=== PATIENT | female | born 1970 | race Caucasian/White ===

== ENCOUNTER 2017-01-08 16:50 | Emergency (ER) | payer OTHER, MEDICARE ==
[~2017-01-08] VITALS: Ht 157.5 cm; Wt 50.4 kg
[~2017-01-08 16:50] MED LIST: BUTA1CAP30 PO; CLON0.12 PO; COLE1TAB PO; COLITIS MEDICATION PO; DICY20TA29 PO; DIPH1TAB PO; DULO20CA45 PO; HYDR-882 PO; IBUP-1222 PO; METO5TAB57 PO; ONDA4TAB10 PO; PHEN16.298 PO; POTA10TA11 PO; SERT100T PO; VANC125C2 PO
[2017-01-08 18:02] LABS: HEMATOCRIT 39.4 % (34.6-47.8); HEMOGLOBIN 13.2 g/dL (11.7-16.4); WHITE BLOOD COUNT 4.9 x10^3/uL (3.4-10)
[2017-01-08 18:16] LABS: BLOOD UREA NITROGEN 11 mg/dL (7-18)
[2017-01-08] MEDS ORDERED: METOCLOPRAMIDE 5 MG/ML, 2ML IVPush ONE (20:00)
[2017-01-08] MEDS ORDERED: OMNIPAQUE 350 MG/ML, 100ML BOTTLE ONE (20:00)
[2017-01-08] MEDS ORDERED: SODIUM CHLORIDE 0.9% 1,000ML IVBOLUS ONE (20:00)
[2017-01-08] MEDS ORDERED: MORPHINE SULFATE 4 MG/ML, 1ML IVPush PRN ×2 (20:00→22:00)
[2017-01-08] MEDS ORDERED: SODIUM CHLORIDE FLUSH 10ML SYR IVF ONE (20:00)
[2017-01-08 20:22] LABS: PATH.CAST-FLAG NOT PRESENT; SPERM-FLAG NOT PRESENT; SRC-FLAG NOT PRESENT; XTAL-FLAG NOT PRESENT; YLC-FLAG NOT PRESENT
[2017-01-08] MEDS ORDERED: METOCLOPRAMIDE 5 MG/ML, 2ML ONE (20:29)
[2017-01-08] MEDS ORDERED: MORPHINE SULFATE 4 MG/ML, 1ML ONE ×2 (20:29→22:08)
[2017-01-08 22:36] VITALS: BP 119/68
== END 2017-01-08 22:50 | disposition home or self-care (01) ==
LOC: ED 21:55
DX: K52.9 Noninfective gastroenteritis and colitis, unspecified (principal); Z90.49 Acquired absence of other specified parts of digestive tract
CPT/HCPCS: 36415; 74020; 74177; 80048; 81001; 82040; 84703; 85025; 96361; 96374; 96375; 96376; 99285; J2765; J7030; Q9967

== ENCOUNTER 2017-01-12 15:36 | Emergency (ER) | payer OTHER, MEDICARE ==
[~2017-01-12] VITALS: Ht 157.5 cm; Wt 48.0 kg
[~2017-01-12 15:36] MED LIST changes: +PHEN-484 PO; -PHEN16.298 PO
[2017-01-12] MEDS ORDERED: MORPHINE SULFATE 4 MG/ML, 1ML ONE ×2 (15:52→17:56)
[2017-01-12] MEDS ORDERED: ONDANSETRON 2MG/ML, 2ML ONE (15:52)
[2017-01-12] MEDS ORDERED: ONDANSETRON 2MG/ML, 2ML IVPush ONE (16:00)
[2017-01-12] MEDS ORDERED: MORPHINE SULFATE 4 MG/ML, 1ML IVPush PRN (16:00)
[2017-01-12] MEDS ORDERED: PLEASE ENTER HEIGHT AND WEIGHT MC SCH (16:00)
[2017-01-12] MEDS ORDERED: SODIUM CHLORIDE FLUSH 10ML SYR IVF ONE (16:00)
[2017-01-12] MEDS ORDERED: SODIUM CHLORIDE 0.9% 1,000ML IVBOLUS ONE (16:00)
[2017-01-12 16:43] LABS: BLOOD UREA NITROGEN 5 mg/dL (7-18)
[2017-01-12 16:46] LABS: ASPARTATE AMINO TRANSFERASE 34 U/L (15-37)
[2017-01-12 17:28] LABS: HEMOGLOBIN 11.4 g/dL (11.7-16.4); WHITE BLOOD COUNT 4.8 x10^3/uL (3.4-10)
[2017-01-12] MEDS ORDERED: KETOROLAC 30 MG/1 ML IM ONE (19:00)
[2017-01-12] MEDS ORDERED: ONDANSETRON ODT 4 MG PO ONE (19:00)
[2017-01-12] MEDS ORDERED: ONDANSETRON ODT 4 MG ONE (19:40)
[2017-01-12 20:45] VITALS: BP 105/63
== END 2017-01-12 20:46 | disposition home or self-care (01) ==
LOC: ED 20:30
DX: K52.832 Lymphocytic colitis (principal); Z90.49 Acquired absence of other specified parts of digestive tract; Z90.710 Acquired absence of both cervix and uterus
CPT/HCPCS: 36415; 80053; 81001; 83605; 83690; 85025; 96361; 96374; 96375; 99284; J2405; J7030

== ENCOUNTER 2017-06-06 08:53 | Inpatient (IN) | payer OTHER, MEDICARE ==
[~2017-06-06] VITALS: Ht 157.5 cm; Wt 52.0 kg
[~2017-06-06 08:53] MED LIST changes: +BUDE3CAP2 PO
[2017-06-06] MEDS ORDERED: ONDANSETRON 2MG/ML, 2ML IVPush ONE ×2 (09:30→14:00)
[2017-06-06] MEDS ORDERED: SODIUM CHLORIDE 0.9% 1,000ML IVBOLUS ONE (09:30)
[2017-06-06 09:49] LABS: BASOPHILS # (AUTO) 0.07 x10^3/uL (0-0.1); BASOPHILS % (AUTO) 2 % (0-1); EOSINOPHILS # (AUTO) 0.16 x10^3/uL (0-0.4); EOSINOPHILS % (AUTO) 4 % (1-7); LYMPHOCYTES # (AUTO) 1.37 x10^3/uL (1-3.4); LYMPHOCYTES % (AUTO) 30 % (22-44); MD NO; MEAN CORPUSCULAR HGB CONC 33.9 g/dL (32.4-35.8); MEAN CORPUSCULAR VOLUME 97.3 fL (80-100); MEAN PLATELET VOLUME 8.5 fL (7.4-10.4); MONOCYTES % (AUTO) 7 % (2-9); NEUTROPHILS # (AUTO) 2.74 x10^3/uL (1.8-6.8); NEUTROPHILS % (AUTO) 59 % (42-75); PLATELET COUNT 252 x10^3/uL (130-400); RED BLOOD COUNT 3.97 x10^6/uL (3.82-5.3); RED CELL DISTRIBUTION WIDTH 13.5 % (9.6-15.2)
[2017-06-06 09:59] LABS: ALANINE AMINOTRANSFERASE 16 U/L (12-78); ALBUMIN 3.7 g/dL (3.4-5.0); ANION GAP 7 mmol/L (5-15); CALCIUM 8.1 mg/dL (8.5-10.1); CHLORIDE 110 mmol/L (98-107); CREATININE 0.78 mg/dL (0.55-1.02)
[2017-06-06 10:02] LABS: ALKALINE PHOSPHATASE 67 U/L (45-117); BILIRUBIN,TOTAL 0.5 mg/dL (0.2-1.0); TOTAL PROTEIN 7.2 g/dL (6.4-8.2)
[2017-06-06] MEDS ORDERED: ONDANSETRON 2MG/ML, 2ML ONE ×2 (10:04→13:36)
[2017-06-06] MEDS ORDERED: HYDROmorphone 2 MG/ML, 1ML ONE ×3 (10:05→13:37)
[2017-06-06] MEDS: HYDROmorphone 1 MG/ML, 1ML IVPush PRN ×2 (10:28→11:58)
[2017-06-06 11:33] LABS: MICROSCOPIC INDICATED
[2017-06-06 11:50] LABS: CULTURE INDICATED? YES; HCG UR SG 1.016 (1.003-1.030)
[2017-06-06] MEDS ORDERED: HYDROmorphone 1 MG/ML, 1ML IV ONE (13:00)
[2017-06-06] MEDS ORDERED: OMNIPAQUE 350 MG/ML, 100ML BOTTLE ONE (13:53)
[2017-06-06] MEDS ORDERED: SUCR1ORA5 PO (14:11)
[2017-06-06] MEDS ORDERED: CHOL100011 PO (14:12)
[2017-06-06 14:48] VITALS: BP 99/66
[2017-06-06] MEDS ORDERED: ONDANSETRON 2MG/ML, 2ML IVPush PRN (15:00)
[2017-06-06] MEDS ORDERED: LORazepam 2 MG/ML, 1ML IVPush PRN (15:00)
[2017-06-06] MEDS ORDERED: ONDANSETRON ODT 4 MG PO PRN (15:00)
[2017-06-06] MEDS ORDERED: SODIUM CHLORIDE 0.9% 1,000 ML IV ONE (15:00)
[2017-06-06] MEDS: ACETAMINOPHEN 325 MG TABLET PO PRN (15:30)
[2017-06-06] MEDS: HYDROmorphone 2 MG/ML, 1ML IVPush PRN ×2 (16:30→20:12)
[2017-06-06] MEDS: DIPHENOXYLATE/ATROPINE TABLET PO SCH ×2 (16:32→20:12)
[2017-06-06 20:01] VITALS: BP 102/65
[2017-06-06] MEDS: ONDANSETRON ODT 4 MG PO SCH (20:11)
[2017-06-06] MEDS: SUCRALFATE 1 GM/10 ML UDC PO SCH (20:12)
[2017-06-06] MEDS: DICYCLOMINE 20 MG TABLET PO SCH (20:12)
[2017-06-07 00:40] VITALS: BP 110/64
[2017-06-07] MEDS: HYDROmorphone 2 MG/ML, 1ML IVPush PRN ×6 (01:00→21:30)
[2017-06-07 05:01] LABS: CHLORIDE 107 mmol/L (98-107)
[2017-06-07 05:02] LABS: BASOPHILS # (AUTO) 0.06 x10^3/uL (0-0.1); BASOPHILS % (AUTO) 1 % (0-1); EOSINOPHILS # (AUTO) 0.21 x10^3/uL (0-0.4); EOSINOPHILS % (AUTO) 4 % (1-7); LYMPHOCYTES # (AUTO) 1.53 x10^3/uL (1-3.4); LYMPHOCYTES % (AUTO) 27 % (22-44); MD NO; MEAN CORPUSCULAR HEMOGLOBIN 33.7 pg (27.0-34.8); MEAN CORPUSCULAR HGB CONC 34.8 g/dL (32.4-35.8); MEAN CORPUSCULAR VOLUME 96.9 fL (80-100); MEAN PLATELET VOLUME 8.5 fL (7.4-10.4); MONOCYTES # (AUTO) 0.47 x10^3/uL (0.2-0.8); MONOCYTES % (AUTO) 8 % (2-9); NEUTROPHILS # (AUTO) 3.47 x10^3/uL (1.8-6.8); NEUTROPHILS % (AUTO) 61 % (42-75); PLATELET COUNT 222 x10^3/uL (130-400); RED BLOOD COUNT 3.38 x10^6/uL (3.82-5.3); RED CELL DISTRIBUTION WIDTH 13.4 % (9.6-15.2)
[2017-06-07 05:07] LABS: ALANINE AMINOTRANSFERASE 16 U/L (12-78); ALBUMIN 3.1 g/dL (3.4-5.0); ALKALINE PHOSPHATASE 61 U/L (45-117); ANION GAP 8 mmol/L (5-15); BILIRUBIN,TOTAL 0.5 mg/dL (0.2-1.0); CALCIUM 7.2 mg/dL (8.5-10.1); CREATININE 0.53 mg/dL (0.55-1.02)
[2017-06-07 08:06] VITALS: BP 106/51
[2017-06-07] MEDS: ONDANSETRON ODT 4 MG PO SCH ×2 (08:39→20:53)
[2017-06-07] MEDS: BUDESONIDE 3 MG CAP DR.ER PO SCH (08:40)
[2017-06-07] MEDS: DICYCLOMINE 20 MG TABLET PO SCH ×2 (08:41→20:53)
[2017-06-07] MEDS: DIPHENOXYLATE/ATROPINE TABLET PO SCH ×3 (08:43→20:53)
[2017-06-07] MEDS: CHOLECALCIFEROL 1,000 UNIT TABLET PO SCH (08:43)
[2017-06-07] MEDS: DULOXETINE 30 MG CAPSULE.DR PO SCH (08:43)
[2017-06-07] MEDS: POTASSIUM CHLORIDE 20 MEQ TAB.ER.PRT PO SCH (12:09)
[2017-06-07] MEDS ORDERED: SODIUM CHLORIDE 0.9% 1,000 ML IV ONE (14:00)
[2017-06-07 14:20] VITALS: BP 107/72
[2017-06-07] MEDS: ACETAMINOPHEN 325 MG TABLET PO PRN (15:36)
[2017-06-07 19:18] VITALS: BP 112/76
[2017-06-07] MEDS: SUCRALFATE 1 GM/10 ML UDC PO SCH (20:53)
[2017-06-07] MEDS: VALACYCLOVIR 500MG TABLET PO SCH (20:54)
[2017-06-08] MEDS: HYDROmorphone 2 MG/ML, 1ML IVPush PRN ×6 (01:07→19:56)
[2017-06-08 01:30] VITALS: BP 98/52
[2017-06-08 06:48] LABS: BASOPHILS # (AUTO) 0.05 x10^3/uL (0-0.1); BASOPHILS % (AUTO) 1 % (0-1); EOSINOPHILS % (AUTO) 5 % (1-7); LYMPHOCYTES % (AUTO) 39 % (22-44); MD NO; MEAN CORPUSCULAR HGB CONC 34.3 g/dL (32.4-35.8); MEAN CORPUSCULAR VOLUME 98.9 fL (80-100); MEAN PLATELET VOLUME 8.7 fL (7.4-10.4); MONOCYTES # (AUTO) 0.34 x10^3/uL (0.2-0.8); MONOCYTES % (AUTO) 9 % (2-9); NEUTROPHILS # (AUTO) 1.78 x10^3/uL (1.8-6.8); NEUTROPHILS % (AUTO) 46 % (42-75); PLATELET COUNT 234 x10^3/uL (130-400); RED BLOOD COUNT 3.41 x10^6/uL (3.82-5.3); RED CELL DISTRIBUTION WIDTH 12.9 % (9.6-15.2)
[2017-06-08 07:01] LABS: ANION GAP 5 mmol/L (5-15); CALCIUM 8.1 mg/dL (8.5-10.1); CHLORIDE 108 mmol/L (98-107)
[2017-06-08 07:02] LABS: CREATININE 0.54 mg/dL (0.55-1.02)
[2017-06-08 07:09] VITALS: BP 103/67
[2017-06-08] MEDS: DICYCLOMINE 20 MG TABLET PO SCH ×2 (08:19→19:56)
[2017-06-08] MEDS: POTASSIUM CHLORIDE 20 MEQ TAB.ER.PRT PO SCH (08:19)
[2017-06-08] MEDS: DULOXETINE 30 MG CAPSULE.DR PO SCH (08:19)
[2017-06-08] MEDS: BUDESONIDE 3 MG CAP DR.ER PO SCH (08:20)
[2017-06-08] MEDS: CHOLECALCIFEROL 1,000 UNIT TABLET PO SCH (08:20)
[2017-06-08] MEDS: VALACYCLOVIR 500MG TABLET PO SCH ×2 (08:20→19:56)
[2017-06-08] MEDS: ONDANSETRON ODT 4 MG PO SCH ×2 (08:20→19:56)
[2017-06-08] MEDS: DIPHENOXYLATE/ATROPINE TABLET PO SCH ×3 (08:20→19:56)
[2017-06-08 14:36] VITALS: BP 114/54
[2017-06-08 19:35] VITALS: BP 99/52
[2017-06-08] MEDS: SUCRALFATE 1 GM/10 ML UDC PO SCH (19:56)
[2017-06-09] MEDS: HYDROmorphone 2 MG/ML, 1ML IVPush PRN ×3 (00:24→13:18)
[2017-06-09 01:48] VITALS: BP 108/69
[2017-06-09 06:59] VITALS: BP 94/57
[2017-06-09 07:31] LABS: BASOPHILS # (AUTO) 0.05 x10^3/uL (0-0.1); BASOPHILS % (AUTO) 1 % (0-1); EOSINOPHILS # (AUTO) 0.24 x10^3/uL (0-0.4); EOSINOPHILS % (AUTO) 4 % (1-7); LYMPHOCYTES # (AUTO) 2.29 x10^3/uL (1-3.4); LYMPHOCYTES % (AUTO) 36 % (22-44); MD NO; MEAN CORPUSCULAR HEMOGLOBIN 33.5 pg (27.0-34.8); MEAN CORPUSCULAR HGB CONC 34.2 g/dL (32.4-35.8); MEAN CORPUSCULAR VOLUME 98.1 fL (80-100); MEAN PLATELET VOLUME 8.3 fL (7.4-10.4); MONOCYTES % (AUTO) 6 % (2-9); NEUTROPHILS # (AUTO) 3.39 x10^3/uL (1.8-6.8); NEUTROPHILS % (AUTO) 53 % (42-75); PLATELET COUNT 252 x10^3/uL (130-400); RED BLOOD COUNT 3.83 x10^6/uL (3.82-5.3); RED CELL DISTRIBUTION WIDTH 12.9 % (9.6-15.2)
[2017-06-09 07:40] LABS: ANION GAP 6 mmol/L (5-15); CALCIUM 8.5 mg/dL (8.5-10.1); CHLORIDE 103 mmol/L (98-107); CREATININE 0.71 mg/dL (0.55-1.02)
[2017-06-09] MEDS: ONDANSETRON ODT 4 MG PO SCH (09:00)
[2017-06-09] MEDS: BUDESONIDE 3 MG CAP DR.ER PO SCH (09:00)
[2017-06-09] MEDS: CHOLECALCIFEROL 1,000 UNIT TABLET PO SCH (09:02)
[2017-06-09] MEDS: VALACYCLOVIR 500MG TABLET PO SCH (09:02)
[2017-06-09] MEDS: DICYCLOMINE 20 MG TABLET PO SCH (09:02)
[2017-06-09] MEDS: DIPHENOXYLATE/ATROPINE TABLET PO SCH (09:02)
[2017-06-09] MEDS: POTASSIUM CHLORIDE 20 MEQ TAB.ER.PRT PO SCH (09:03)
[2017-06-09] MEDS: DULOXETINE 30 MG CAPSULE.DR PO SCH (09:03)
[2017-06-09 13:05] VITALS: BP 106/74
== END 2017-06-09 14:08 | disposition home or self-care (01) | DRG 392 ==
LOC: ED 09:52 → INTOOBSV 13:57 → EDIP 13:57 → 3NE 14:43 → OBSVTOIN 06-08 08:38 → DCLOUNGE 06-09 14:05
PROVIDERS: ADMIT Internal Medicine; ATTEND Internal Medicine
DX: K52.89 Other specified noninfective gastroenteritis and colitis (principal); E87.6 Hypokalemia; F41.1 Generalized anxiety disorder; J45.909 Unspecified asthma, uncomplicated; Z80.0 Family history of malignant neoplasm of digestive organs; Z80.7 Family history of other malignant neoplasms of lymphoid, hematopoietic and related tissues; Z82.49 Family history of ischemic heart disease and other diseases of the circulatory system; Z81.8 Family history of other mental and behavioral disorders; Z83.3 Family history of diabetes mellitus; Z90.49 Acquired absence of other specified parts of digestive tract; Z90.710 Acquired absence of both cervix and uterus; Z88.8 Allergy status to other drugs, medicaments and biological substances
CPT/HCPCS: 36415; 74177; 80048; 80053; 81001; 81025; 83690; 83735; 84100; 85025; 87086; 93005; 96361; 96374; 96375; 96376; G0378; J1170; J2405; Q0162; Q9967; J2060; J7030

== ENCOUNTER 2017-07-02 22:31 | Emergency (ER) | payer OTHER, MEDICARE ==
[~2017-07-02] VITALS: Ht 157.5 cm; Wt 53.1 kg
[~2017-07-02 22:31] MED LIST changes: +CHOL100011 PO; -SERT100T PO; +SERT20OR PO; +SUCR1ORA5 PO
[2017-07-02] MEDS ORDERED: SODIUM CHLORIDE 0.9% 1,000ML IVBOLUS ONE (23:30)
[2017-07-02] MEDS ORDERED: FAMOTIDINE 20 MG/2 ML IVP ONE (23:30)
[2017-07-02] MEDS ORDERED: SODIUM CHLORIDE FLUSH 10ML SYR IVF ONE (23:30)
[2017-07-02] MEDS ORDERED: ONDANSETRON 2MG/ML, 2ML IVPush ONE (23:30)
[2017-07-02] MEDS ORDERED: ONDANSETRON 2MG/ML, 2ML ONE (23:48)
[2017-07-02] MEDS ORDERED: HYDROmorphone 2 MG/ML, 1ML ONE (23:48)
[2017-07-02] MEDS ORDERED: FAMOTIDINE 20 MG/2 ML ONE (23:49)
[2017-07-02 23:55] LABS: BASOPHILS # (AUTO) 0.06 x10^3/uL (0-0.1); BASOPHILS % (AUTO) 1 % (0-1); EOSINOPHILS # (AUTO) 0.21 x10^3/uL (0-0.4); EOSINOPHILS % (AUTO) 4 % (1-7); LYMPHOCYTES % (AUTO) 38 % (22-44); MD NO; MEAN CORPUSCULAR HEMOGLOBIN 33.6 pg (27.0-34.8); MEAN CORPUSCULAR VOLUME 98.7 fL (80-100); MEAN PLATELET VOLUME 8.8 fL (7.4-10.4); MONOCYTES # (AUTO) 0.49 x10^3/uL (0.2-0.8); MONOCYTES % (AUTO) 8 % (2-9); NEUTROPHILS # (AUTO) 2.92 x10^3/uL (1.8-6.8); NEUTROPHILS % (AUTO) 49 % (42-75); PLATELET COUNT 198 x10^3/uL (130-400); RED BLOOD COUNT 3.65 x10^6/uL (3.82-5.3); RED CELL DISTRIBUTION WIDTH 12.9 % (9.6-15.2)
[2017-07-02] MEDS: HYDROmorphone 2 MG/ML, 1ML IVPush PRN (23:55)
[2017-07-03 00:03] LABS: ALANINE AMINOTRANSFERASE 18 U/L (12-78); ALBUMIN 3.6 g/dL (3.4-5.0); ANION GAP 9 mmol/L (5-15); CALCIUM 7.8 mg/dL (8.5-10.1); CHLORIDE 110 mmol/L (98-107); CREATININE 0.66 mg/dL (0.55-1.02)
[2017-07-03 00:05] LABS: ALKALINE PHOSPHATASE 77 U/L (45-117); BILIRUBIN,TOTAL 0.2 mg/dL (0.2-1.0); TOTAL PROTEIN 6.9 g/dL (6.4-8.2)
[2017-07-03 00:07] LABS: MICROSCOPIC AUTO
[2017-07-03] MEDS: HYDROmorphone 2 MG/ML, 1ML IVPush PRN (00:10)
[2017-07-03 01:03] LABS: CULTURE INDICATED? NO
[2017-07-03] MEDS ORDERED: HYDROmorphone 2 MG/ML, 1ML ONE (02:00)
[2017-07-03] MEDS ORDERED: HYDROmorphone 2 MG/ML, 1ML IVPush PRN (02:00)
[2017-07-03 03:28] VITALS: BP 92/50
[2017-07-03] MEDS ORDERED: OXYcodone/APAP 5/325MG TABLET PO ONE (04:00)
[2017-07-03] MEDS ORDERED: PROMETHAZINE 25MG TABLET PO PRN (04:00)
[2017-07-03] MEDS ORDERED: OXYcodone/APAP 5/325MG TABLET ONE (04:04)
== END 2017-07-03 04:57 | disposition home or self-care (01) ==
LOC: ED 23:48
DX: G89.29 Other chronic pain (principal); R10.32 Left lower quadrant pain; Z90.49 Acquired absence of other specified parts of digestive tract; Z87.891 Personal history of nicotine dependence
CPT/HCPCS: 36415; 74021; 80053; 81001; 83690; 85025; 96361; 96374; 96375; 96376; 99285; J1170; J2405; J7030; Q0169; S0028

== ENCOUNTER 2017-07-05 13:52 | Emergency (ER) | payer OTHER, MEDICARE ==
[~2017-07-05] VITALS: Ht 157.5 cm; Wt 51.0 kg
[2017-07-05] MEDS ORDERED: SUCR1TAB33 PO (14:27)
[2017-07-05] MEDS ORDERED: MORPHINE SULFATE 4 MG/ML, 1ML ONE ×2 (14:35→15:41)
[2017-07-05] MEDS ORDERED: ONDANSETRON 2MG/ML, 2ML ONE (14:36)
[2017-07-05] MEDS: MORPHINE SULFATE 4 MG/ML, 1ML IVPush PRN ×2 (14:40→15:43)
[2017-07-05 14:44] VITALS: BP 105/57
[2017-07-05] MEDS ORDERED: ONDANSETRON 2MG/ML, 2ML IVPush ONE (15:00)
[2017-07-05] MEDS ORDERED: SODIUM CHLORIDE 0.9% 1,000ML IVBOLUS ONE (15:00)
[2017-07-05] MEDS ORDERED: SODIUM CHLORIDE FLUSH 10ML SYR IVF ONE (15:00)
[2017-07-05 15:09] LABS: BASOPHILS # (AUTO) 0.07 x10^3/uL (0-0.1); BASOPHILS % (AUTO) 1 % (0-1); EOSINOPHILS % (AUTO) 1 % (1-7); LYMPHOCYTES # (AUTO) 1.94 x10^3/uL (1-3.4); LYMPHOCYTES % (AUTO) 29 % (22-44); MD NO; MEAN CORPUSCULAR HEMOGLOBIN 33.3 pg (27.0-34.8); MEAN CORPUSCULAR HGB CONC 33.6 g/dL (32.4-35.8); MEAN PLATELET VOLUME 9.2 fL (7.4-10.4); MONOCYTES # (AUTO) 0.43 x10^3/uL (0.2-0.8); MONOCYTES % (AUTO) 6 % (2-9); NEUTROPHILS # (AUTO) 4.25 x10^3/uL (1.8-6.8); NEUTROPHILS % (AUTO) 63 % (42-75); PLATELET COUNT 217 x10^3/uL (130-400); RED BLOOD COUNT 3.69 x10^6/uL (3.82-5.3)
[2017-07-05 15:16] LABS: MICROSCOPIC AUTO
[2017-07-05 15:17] LABS: CULTURE INDICATED? NO
[2017-07-05 15:20] LABS: ALBUMIN 3.7 g/dL (3.4-5.0); ANION GAP 7 mmol/L (5-15); CALCIUM 7.7 mg/dL (8.5-10.1); CHLORIDE 112 mmol/L (98-107)
[2017-07-05 15:29] LABS: ALANINE AMINOTRANSFERASE 17 U/L (12-78); ALKALINE PHOSPHATASE 68 U/L (45-117); BILIRUBIN,TOTAL 0.3 mg/dL (0.2-1.0); CREATININE 0.72 mg/dL (0.55-1.02); TOTAL PROTEIN 6.9 g/dL (6.4-8.2)
== END 2017-07-05 18:25 | disposition home or self-care (01) ==
LOC: ED 16:57
DX: K52.9 Noninfective gastroenteritis and colitis, unspecified (principal); Z90.49 Acquired absence of other specified parts of digestive tract
CPT/HCPCS: 36415; 74177; 80053; 81001; 83690; 84703; 85025; 96374; 96375; 96376; 99285; J2405; J7030; J7512

== ENCOUNTER 2017-08-03 12:10 | Inpatient (IN) | payer OTHER, MEDICARE ==
[~2017-08-03] VITALS: Ht 157.5 cm; Wt 52.9 kg
[~2017-08-03 12:10] MED LIST changes: +SERT100T PO; -SERT20OR PO; +SUCR1TAB33 PO
[2017-08-03] MEDS ORDERED: SODIUM CHLORIDE 0.9% 1,000 ML IV ONE (12:36)
[2017-08-03] MEDS ORDERED: FAMOTIDINE 20 MG/2 ML IVP ONE (13:00)
[2017-08-03] MEDS ORDERED: ONDANSETRON 2MG/ML, 2ML IVPush ONE (13:00)
[2017-08-03] MEDS ORDERED: SODIUM CHLORIDE 0.9% 1,000ML IVBOLUS ONE (13:00)
[2017-08-03 13:01] LABS: BASOPHILS # (AUTO) 0.06 x10^3/uL (0-0.1); BASOPHILS % (AUTO) 1 % (0-1); EOSINOPHILS # (AUTO) 0.07 x10^3/uL (0-0.4); EOSINOPHILS % (AUTO) 1 % (1-7); LYMPHOCYTES # (AUTO) 1.42 x10^3/uL (1-3.4); LYMPHOCYTES % (AUTO) 22 % (22-44); MD NO; MEAN CORPUSCULAR HEMOGLOBIN 33.6 pg (27.0-34.8); MEAN CORPUSCULAR HGB CONC 34.6 g/dL (32.4-35.8); MEAN CORPUSCULAR VOLUME 96.9 fL (80-100); MEAN PLATELET VOLUME 8.8 fL (7.4-10.4); MONOCYTES # (AUTO) 0.44 x10^3/uL (0.2-0.8); MONOCYTES % (AUTO) 7 % (2-9); NEUTROPHILS # (AUTO) 4.38 x10^3/uL (1.8-6.8); NEUTROPHILS % (AUTO) 69 % (42-75); PLATELET COUNT 254 x10^3/uL (130-400); RED BLOOD COUNT 3.98 x10^6/uL (3.82-5.3)
[2017-08-03] MEDS ORDERED: ONDANSETRON 2MG/ML, 2ML ONE (13:06)
[2017-08-03] MEDS ORDERED: FAMOTIDINE 20 MG/2 ML ONE (13:07)
[2017-08-03] MEDS ORDERED: MORPHINE SULFATE 4 MG/ML, 1ML ONE ×2 (13:07→13:58)
[2017-08-03 13:12] LABS: ALANINE AMINOTRANSFERASE 17 U/L (12-78); ALBUMIN 3.8 g/dL (3.4-5.0); ANION GAP 9 mmol/L (5-15); CALCIUM 8.7 mg/dL (8.5-10.1); CHLORIDE 109 mmol/L (98-107); CREATININE 0.75 mg/dL (0.55-1.02)
[2017-08-03 13:17] LABS: ALKALINE PHOSPHATASE 70 U/L (45-117); BILIRUBIN,TOTAL 0.3 mg/dL (0.2-1.0); TOTAL PROTEIN 7.4 g/dL (6.4-8.2)
[2017-08-03] MEDS: MORPHINE SULFATE 4 MG/ML, 1ML IVPush PRN ×4 (13:27→21:49)
[2017-08-03] MEDS ORDERED: methylPREDNISolone SOD SUCC 125 MG/2 ML IVPush ONE (13:30)
[2017-08-03] MEDS ORDERED: methylPREDNISolone SOD SUCC 125 MG/2 ML ONE (13:48)
[2017-08-03] MEDS ORDERED: FENTANYL PF 100 MCG/2ML ONE (14:15)
[2017-08-03] MEDS ORDERED: FENTANYL PF 100 MCG/2ML IVPush PRN (14:30)
[2017-08-03 14:34] LABS: MICROSCOPIC NOT IND
[2017-08-03 14:46] LABS: CULTURE INDICATED? NO
[2017-08-03] MEDS ORDERED: ONDANSETRON ODT 4 MG PO PRN (15:30)
[2017-08-03] MEDS ORDERED: LORazepam 1MG TABLET PO PRN (15:30)
[2017-08-03 16:06] VITALS: BP 97/57
[2017-08-03] MEDS: ONDANSETRON 2MG/ML, 2ML IVPush PRN (17:52)
[2017-08-03] MEDS: DIPHENOXYLATE/ATROPINE TABLET PO SCH ×2 (17:52→20:09)
[2017-08-03] MEDS: NS + 20MEQ KCL 1,000 ML IV SCH (18:10)
[2017-08-03 19:51] VITALS: BP 99/65
[2017-08-03] MEDS: SUCRALFATE 1 GM TABLET PO SCH (20:09)
[2017-08-03] MEDS: DICYCLOMINE 20 MG TABLET PO SCH (20:10)
[2017-08-03] MEDS: DULOXETINE 30 MG CAPSULE.DR PO SCH (20:10)
[2017-08-03] MEDS: methylPREDNISolone SOD SUCC 125 MG/2 ML IVPush SCH (21:48)
[2017-08-04 01:38] VITALS: BP 95/59
[2017-08-04] MEDS: MORPHINE SULFATE 4 MG/ML, 1ML IVPush PRN ×5 (02:17→20:17)
[2017-08-04] MEDS: NS + 20MEQ KCL 1,000 ML IV SCH (02:17)
[2017-08-04 06:24] LABS: ANION GAP 6 mmol/L (5-15); CALCIUM 7.3 mg/dL (8.5-10.1); CHLORIDE 114 mmol/L (98-107)
[2017-08-04 06:27] LABS: ALANINE AMINOTRANSFERASE 16 U/L (12-78); ALKALINE PHOSPHATASE 57 U/L (45-117); BILIRUBIN,TOTAL 0.4 mg/dL (0.2-1.0); CREATININE 0.53 mg/dL (0.55-1.02); TOTAL PROTEIN 5.9 g/dL (6.4-8.2)
[2017-08-04 07:15] VITALS: BP 100/63
[2017-08-04] MEDS: CHOLECALCIFEROL 1,000 UNIT TABLET PO SCH (08:24)
[2017-08-04] MEDS: DIPHENOXYLATE/ATROPINE TABLET PO SCH ×3 (08:24→20:18)
[2017-08-04] MEDS: POTASSIUM CHLORIDE 10 MEQ TABLET.ER PO SCH (08:24)
[2017-08-04] MEDS: DICYCLOMINE 20 MG TABLET PO SCH ×2 (08:24→20:18)
[2017-08-04] MEDS: POTASSIUM CHLORIDE 10 MEQ in D5%-0.45% NACL 1,000 ML IV SCH ×2 (09:50→22:06)
[2017-08-04] MEDS: methylPREDNISolone SOD SUCC 125 MG/2 ML IVPush SCH ×2 (11:19→22:06)
[2017-08-04 12:48] VITALS: BP 104/59
[2017-08-04 19:45] VITALS: BP 97/53
[2017-08-04] MEDS: SUCRALFATE 1 GM TABLET PO SCH (20:18)
[2017-08-04] MEDS: DULOXETINE 30 MG CAPSULE.DR PO SCH (20:18)
[2017-08-04 21:16] LABS: CLOSTRIDIUM DIFFICILE ANTIGEN NEGATIVE; CLOSTRIDIUM DIFFICILE TOXIN NEGATIVE (Negative)
[2017-08-05 01:12] VITALS: BP 102/58
[2017-08-05 05:38] LABS: ANION GAP 7 mmol/L (5-15); CALCIUM 7.7 mg/dL (8.5-10.1); CHLORIDE 112 mmol/L (98-107); CREATININE 0.62 mg/dL (0.55-1.02)
[2017-08-05] MEDS: POTASSIUM CHLORIDE 10 MEQ in D5%-0.45% NACL 1,000 ML IV SCH (06:18)
[2017-08-05 07:32] VITALS: BP 96/62
[2017-08-05] MEDS: MORPHINE SULFATE 4 MG/ML, 1ML IVPush PRN ×4 (08:24→22:35)
[2017-08-05] MEDS: POTASSIUM CHLORIDE 10 MEQ TABLET.ER PO SCH (08:25)
[2017-08-05] MEDS: DICYCLOMINE 20 MG TABLET PO SCH ×2 (08:25→20:32)
[2017-08-05] MEDS: DIPHENOXYLATE/ATROPINE TABLET PO SCH ×3 (08:25→20:32)
[2017-08-05] MEDS: CHOLECALCIFEROL 1,000 UNIT TABLET PO SCH (08:25)
[2017-08-05] MEDS: ONDANSETRON 2MG/ML, 2ML IVPush PRN ×2 (12:58→22:34)
[2017-08-05] MEDS: methylPREDNISolone SOD SUCC 125 MG/2 ML IVPush SCH ×2 (13:01→23:51)
[2017-08-05 14:05] VITALS: BP 106/68
[2017-08-05 19:13] VITALS: BP 106/72
[2017-08-05] MEDS: DULOXETINE 30 MG CAPSULE.DR PO SCH (20:32)
[2017-08-05] MEDS: SUCRALFATE 1 GM TABLET PO SCH (20:32)
[2017-08-06 02:50] VITALS: BP 105/54
[2017-08-06 05:44] LABS: ANION GAP 4 mmol/L (5-15); CALCIUM 8.1 mg/dL (8.5-10.1); CHLORIDE 108 mmol/L (98-107); CREATININE 0.64 mg/dL (0.55-1.02)
[2017-08-06 06:40] VITALS: BP 98/63
[2017-08-06] MEDS ORDERED: POTASSIUM CHLORIDE 10 MEQ in D5%-0.45% NACL 1,000 ML IV SCH (09:00)
[2017-08-06] MEDS: DIPHENOXYLATE/ATROPINE TABLET PO SCH (10:11)
[2017-08-06] MEDS: POTASSIUM CHLORIDE 10 MEQ TABLET.ER PO SCH (10:11)
[2017-08-06] MEDS: CHOLECALCIFEROL 1,000 UNIT TABLET PO SCH (10:11)
[2017-08-06] MEDS: DICYCLOMINE 20 MG TABLET PO SCH (10:11)
[2017-08-06] MEDS: methylPREDNISolone SOD SUCC 125 MG/2 ML IVPush SCH (10:16)
[2017-08-06] MEDS ORDERED: PRED20TA PO (10:31)
== END 2017-08-06 15:50 | disposition home or self-care (01) | DRG 392 ==
LOC: ED 13:44 → EDIP 14:33 → 3NE 15:49
PROVIDERS: ADMIT Hospitalist; ATTEND Hospitalist
DX: K52.832 Lymphocytic colitis (principal); E44.1 Mild protein-calorie malnutrition; K52.9 Noninfective gastroenteritis and colitis, unspecified; Z91.14 Patient's other noncompliance with medication regimen; Z68.21 Body mass index [BMI] 21.0-21.9, adult; E86.0 Dehydration; F32.9 Major depressive disorder, single episode, unspecified; F41.1 Generalized anxiety disorder; G43.909 Migraine, unspecified, not intractable, without status migrainosus; G89.29 Other chronic pain; Z80.0 Family history of malignant neoplasm of digestive organs; Z81.8 Family history of other mental and behavioral disorders; Z80.7 Family history of other malignant neoplasms of lymphoid, hematopoietic and related tissues; Z90.710 Acquired absence of both cervix and uterus; Z82.49 Family history of ischemic heart disease and other diseases of the circulatory system; Z91.19 Patient's noncompliance with other medical treatment and regimen; Z90.49 Acquired absence of other specified parts of digestive tract; Z88.8 Allergy status to other drugs, medicaments and biological substances
CPT/HCPCS: 36415; 74021; 80048; 80053; 81003; 83690; 84703; 85025; 87324; 96361; 96374; 96375; 96376; J2405; J3010; J3480; J2930; J7030; S0028

== ENCOUNTER 2017-09-19 17:44 | Inpatient (IN) | payer OTHER, MEDICARE ==
[~2017-09-19] VITALS: Ht 157.5 cm; Wt 56.7 kg
[~2017-09-19 17:44] MED LIST changes: +PRED20TA PO
[2017-09-19] MEDS ORDERED: VALA10004 PO (18:20)
[2017-09-19] MEDS ORDERED: SODIUM CHLORIDE 0.9% 1,000ML IVBOLUS ONE (18:30)
[2017-09-19] MEDS ORDERED: DIPHENHYDRAMINE 50 MG/ML, 1ML IVPush ONE (18:30)
[2017-09-19] MEDS ORDERED: SODIUM CHLORIDE FLUSH 10ML SYR IVF ONE (18:30)
[2017-09-19 18:42] LABS: BASOPHILS # (AUTO) 0.07 x10^3/uL (0-0.1); BASOPHILS % (AUTO) 2 % (0-1); EOSINOPHILS # (AUTO) 0.13 x10^3/uL (0-0.4); EOSINOPHILS % (AUTO) 3 % (1-7); LYMPHOCYTES # (AUTO) 1.98 x10^3/uL (1-3.4); LYMPHOCYTES % (AUTO) 41 % (22-44); MD NO; MEAN CORPUSCULAR HEMOGLOBIN 33.3 pg (27.0-34.8); MEAN CORPUSCULAR HGB CONC 34.3 g/dL (32.4-35.8); MEAN CORPUSCULAR VOLUME 97.1 fL (80-100); MEAN PLATELET VOLUME 8.7 fL (7.4-10.4); MONOCYTES # (AUTO) 0.36 x10^3/uL (0.2-0.8); MONOCYTES % (AUTO) 8 % (2-9); NEUTROPHILS # (AUTO) 2.32 x10^3/uL (1.8-6.8); NEUTROPHILS % (AUTO) 48 % (42-75); PLATELET COUNT 210 x10^3/uL (130-400); RED BLOOD COUNT 3.67 x10^6/uL (3.82-5.3); RED CELL DISTRIBUTION WIDTH 13.3 % (9.6-15.2)
[2017-09-19] MEDS ORDERED: DIPHENHYDRAMINE 50 MG/ML, 1ML ONE (18:42)
[2017-09-19] MEDS ORDERED: MORPHINE SULFATE 4 MG/ML, 1ML ONE ×2 (18:42→19:09)
[2017-09-19] MEDS: MORPHINE SULFATE 4 MG/ML, 1ML IVPush PRN ×2 (18:43→19:12)
[2017-09-19 18:54] LABS: ALBUMIN 3.8 g/dL (3.4-5.0); ANION GAP 9 mmol/L (5-15); CALCIUM 8.5 mg/dL (8.5-10.1); CHLORIDE 110 mmol/L (98-107)
[2017-09-19 19:00] LABS: ALANINE AMINOTRANSFERASE 27 U/L (12-78); ALKALINE PHOSPHATASE 67 U/L (45-117); BILIRUBIN,TOTAL 0.5 mg/dL (0.2-1.0); CREATININE 0.79 mg/dL (0.55-1.02)
[2017-09-19 19:22] LABS: MICROSCOPIC AUTO
[2017-09-19 19:24] LABS: CULTURE INDICATED? NO
[2017-09-19] MEDS ORDERED: METHYLNALTREXONE 12 MG/0.6 ML SQ ONE (19:34)
[2017-09-19] MEDS: METHYLNALTREXONE 12 MG/0.6 ML SQ ONE ×2 (19:36→20:04)
[2017-09-19] MEDS ORDERED: HYDROmorphone 2 MG/ML, 1ML ONE (19:55)
[2017-09-19] MEDS ORDERED: PROMETHAZINE 25 MG/ML, 1ML ONE (19:57)
[2017-09-19] MEDS ORDERED: HYDROmorphone 2 MG/ML, 1ML IVPush PRN (20:00)
[2017-09-19] MEDS ORDERED: PROMETHAZINE 25 MG/ML, 1ML IM ONE (20:00)
[2017-09-19] MEDS ORDERED: ACETAMINOPHEN 325 MG TABLET PO PRN (21:00)
[2017-09-19] MEDS ORDERED: VALACYCLOVIR 500MG TABLET PO PRN (21:00)
[2017-09-19] MEDS ORDERED: TEMPLATE NON-FORMULARY MED. (Butalbital/Aspirin/Caffeine** (Fiorinal 50-325-40 Mg Capsule HOMEMEDPO PRN (21:00)
[2017-09-19 21:30] VITALS: BP 102/65
[2017-09-19] MEDS: SODIUM CHLORIDE 0.9% 1,000 ML IV SCH (21:47)
[2017-09-19] MEDS: SUCRALFATE 1 GM TABLET PO SCH (21:47)
[2017-09-19] MEDS: DULOXETINE 20 MG CAPSULE.DR PO SCH (21:47)
[2017-09-19] MEDS: DICYCLOMINE 20 MG TABLET PO SCH (21:47)
[2017-09-19] MEDS: morphine SULFATE 10 MG/ML, 1ML IVPush PRN (22:44)
[2017-09-20 03:02] VITALS: BP 108/55
[2017-09-20] MEDS: morphine SULFATE 10 MG/ML, 1ML IVPush PRN ×3 (03:44→11:51)
[2017-09-20 05:08] LABS: BASOPHILS # (AUTO) 0.07 x10^3/uL (0-0.1); BASOPHILS % (AUTO) 2 % (0-1); EOSINOPHILS # (AUTO) 0.15 x10^3/uL (0-0.4); EOSINOPHILS % (AUTO) 3 % (1-7); LYMPHOCYTES # (AUTO) 2.01 x10^3/uL (1-3.4); LYMPHOCYTES % (AUTO) 44 % (22-44); MD NO; MEAN CORPUSCULAR HEMOGLOBIN 33.1 pg (27.0-34.8); MEAN CORPUSCULAR HGB CONC 34.3 g/dL (32.4-35.8); MEAN CORPUSCULAR VOLUME 96.7 fL (80-100); MEAN PLATELET VOLUME 8.7 fL (7.4-10.4); MONOCYTES # (AUTO) 0.39 x10^3/uL (0.2-0.8); MONOCYTES % (AUTO) 9 % (2-9); NEUTROPHILS # (AUTO) 1.94 x10^3/uL (1.8-6.8); NEUTROPHILS % (AUTO) 43 % (42-75); PLATELET COUNT 178 x10^3/uL (130-400); RED BLOOD COUNT 3.24 x10^6/uL (3.82-5.3)
[2017-09-20 05:16] LABS: ALBUMIN 3.1 g/dL (3.4-5.0); ANION GAP 7 mmol/L (5-15); CHLORIDE 113 mmol/L (98-107)
[2017-09-20 05:19] LABS: CREATININE 0.68 mg/dL (0.55-1.02)
[2017-09-20 05:20] LABS: ALANINE AMINOTRANSFERASE 25 U/L (12-78); ALKALINE PHOSPHATASE 56 U/L (45-117); BILIRUBIN,TOTAL 0.5 mg/dL (0.2-1.0); TOTAL PROTEIN 5.7 g/dL (6.4-8.2)
[2017-09-20 06:08] LABS: CLOSTRIDIUM DIFFICILE ANTIGEN NEGATIVE; CLOSTRIDIUM DIFFICILE TOXIN NEGATIVE (Negative)
[2017-09-20] MEDS: SODIUM CHLORIDE 0.9% 1,000 ML IV SCH ×2 (06:18→16:44)
[2017-09-20 07:14] VITALS: BP 97/57
[2017-09-20] MEDS: DICYCLOMINE 20 MG TABLET PO SCH ×2 (08:29→20:23)
[2017-09-20] MEDS: ONDANSETRON ODT 4 MG PO PRN ×2 (08:29→14:27)
[2017-09-20] MEDS: CHOLECALCIFEROL 1,000 UNIT TABLET PO SCH (08:36)
[2017-09-20] MEDS ORDERED: POTASSIUM CHLORIDE 20 MEQ TAB.ER.PRT PO SCH (09:00)
[2017-09-20] MEDS ORDERED: POTASSIUM CHLORIDE 20 MEQ TAB.ER.PRT PO ONE ×2 (11:30→14:30)
[2017-09-20 12:50] VITALS: BP 103/59
[2017-09-20] MEDS: MORPHINE SULFATE 4 MG/ML, 1ML IVPush PRN ×2 (16:57→22:26)
[2017-09-20 19:57] VITALS: BP 114/74
[2017-09-20] MEDS: DULOXETINE 20 MG CAPSULE.DR PO SCH (20:22)
[2017-09-20] MEDS: SUCRALFATE 1 GM TABLET PO SCH (20:23)
[2017-09-20] MEDS: DIPHENOXYLATE/ATROPINE TABLET PO PRN (22:27)
[2017-09-21] MEDS: SODIUM CHLORIDE 0.9% 1,000 ML IV SCH ×3 (02:25→20:57)
[2017-09-21 02:45] VITALS: BP 98/59
[2017-09-21] MEDS: ONDANSETRON ODT 4 MG PO PRN ×3 (03:04→22:13)
[2017-09-21] MEDS: MORPHINE SULFATE 4 MG/ML, 1ML IVPush PRN ×3 (03:08→15:16)
[2017-09-21 05:11] LABS: ALBUMIN 3.2 g/dL (3.4-5.0); ANION GAP 6 mmol/L (5-15); CALCIUM 7.9 mg/dL (8.5-10.1); CHLORIDE 111 mmol/L (98-107); CREATININE 0.61 mg/dL (0.55-1.02)
[2017-09-21 05:19] LABS: MEAN CORPUSCULAR HEMOGLOBIN 32.9 pg (27.0-34.8); MEAN CORPUSCULAR HGB CONC 33.9 g/dL (32.4-35.8); MEAN CORPUSCULAR VOLUME 97.1 fL (80-100); MEAN PLATELET VOLUME 8.9 fL (7.4-10.4); PLATELET COUNT 176 x10^3/uL (130-400); RED BLOOD COUNT 3.29 x10^6/uL (3.82-5.3); RED CELL DISTRIBUTION WIDTH 13.5 % (9.6-15.2)
[2017-09-21 05:58] LABS: MD YES
[2017-09-21 06:01] LABS: BASOS#(MANUAL) 0.03 x10^3/uL (0-0.1); BASOS% (MANUAL) 1 % (0-1); EOS% (MANUAL) 6 % (1-7); LYMPH#(MANUAL) 1.42 x10^3/uL (1-3.4); LYMPHS% (MANUAL) 43 % (22-44); MONOS#(MANUAL) 0.23 x10^3/uL (0.3-2.7); MONOS% (MANUAL) 7 % (2-9); SEG#(MANUAL) 1.42 x10^3/uL (1.8-6.8); SEGS% (MANUAL) 43 % (42-75)
[2017-09-21 06:02] LABS: <PLATELET ESTIMATE> ADEQUATE; <PLT MORPHOLOGY> NORMAL PLT MORPH; <RBC MORPHOLOGY> NORMAL
[2017-09-21 07:12] VITALS: BP 107/67
[2017-09-21] MEDS: DICYCLOMINE 20 MG TABLET PO SCH ×2 (09:11→20:59)
[2017-09-21] MEDS: CHOLECALCIFEROL 1,000 UNIT TABLET PO SCH (09:11)
[2017-09-21] MEDS: HYDROcodone/APAP 10/325 MG TABLET PO PRN ×2 (11:58→20:59)
[2017-09-21 12:20] VITALS: BP 104/88
[2017-09-21] MEDS ORDERED: BUDE3CAP6 PO (12:52)
[2017-09-21] MEDS ORDERED: BUDESONIDE 3 MG CAP DR.ER PO SCH (13:00)
[2017-09-21] MEDS: DIPHENOXYLATE/ATROPINE TABLET PO PRN (15:22)
[2017-09-21 19:50] VITALS: BP 111/75
[2017-09-21] MEDS: DULOXETINE 20 MG CAPSULE.DR PO SCH (20:59)
[2017-09-21] MEDS: SUCRALFATE 1 GM TABLET PO SCH (20:59)
[2017-09-22 01:33] VITALS: BP 106/68
[2017-09-22 04:58] LABS: BASOPHILS # (AUTO) 0.08 x10^3/uL (0-0.1); BASOPHILS % (AUTO) 2 % (0-1); EOSINOPHILS # (AUTO) 0.27 x10^3/uL (0-0.4); EOSINOPHILS % (AUTO) 7 % (1-7); LYMPHOCYTES # (AUTO) 1.42 x10^3/uL (1-3.4); LYMPHOCYTES % (AUTO) 38 % (22-44); MD NO; MEAN CORPUSCULAR HEMOGLOBIN 33.7 pg (27.0-34.8); MEAN CORPUSCULAR HGB CONC 34.7 g/dL (32.4-35.8); MEAN CORPUSCULAR VOLUME 97.3 fL (80-100); MONOCYTES % (AUTO) 8 % (2-9); NEUTROPHILS # (AUTO) 1.65 x10^3/uL (1.8-6.8); NEUTROPHILS % (AUTO) 44 % (42-75); PLATELET COUNT 189 x10^3/uL (130-400); RED BLOOD COUNT 3.39 x10^6/uL (3.82-5.3); RED CELL DISTRIBUTION WIDTH 12.8 % (9.6-15.2)
[2017-09-22 05:09] LABS: ALBUMIN 3.1 g/dL (3.4-5.0); ANION GAP 7 mmol/L (5-15); CALCIUM 8.1 mg/dL (8.5-10.1); CHLORIDE 108 mmol/L (98-107); CREATININE 0.67 mg/dL (0.55-1.02)
[2017-09-22] MEDS ORDERED: IBUPROFEN 600 MG TABLET PO PRN (07:00)
[2017-09-22] MEDS ORDERED: BUDESONIDE 3 MG CAP DR.ER PO SCH (07:00)
[2017-09-22 07:17] VITALS: BP 95/56
[2017-09-22] MEDS: CHOLECALCIFEROL 1,000 UNIT TABLET PO SCH (08:25)
[2017-09-22] MEDS: DICYCLOMINE 20 MG TABLET PO SCH (08:28)
== END 2017-09-22 10:37 | disposition home or self-care (01) | DRG 392 ==
LOC: ED 18:54 → EDIP 20:24 → 3NE 21:24 → DCLOUNGE 09-22 10:33
PROVIDERS: ADMIT Hospitalist; ATTEND Hospitalist
DX: K52.832 Lymphocytic colitis (principal); D64.9 Anemia, unspecified; F32.9 Major depressive disorder, single episode, unspecified; G43.909 Migraine, unspecified, not intractable, without status migrainosus; K58.0 Irritable bowel syndrome with diarrhea; J45.990 Exercise induced bronchospasm; E86.0 Dehydration; F41.9 Anxiety disorder, unspecified; Z80.0 Family history of malignant neoplasm of digestive organs; Z80.7 Family history of other malignant neoplasms of lymphoid, hematopoietic and related tissues; Z82.49 Family history of ischemic heart disease and other diseases of the circulatory system; Z90.710 Acquired absence of both cervix and uterus; Z90.49 Acquired absence of other specified parts of digestive tract; Z90.89 Acquired absence of other organs; Z81.8 Family history of other mental and behavioral disorders; Z88.5 Allergy status to narcotic agent
CPT/HCPCS: 36415; 74018; 80048; 80053; 81001; 82040; 83690; 83735; 84100; 84703; 85025; 87324; 96361; 96372; 96374; 96375; J1170; J2550; Q0162; J1200; J2270; J7030

== ENCOUNTER 2018-01-12 15:21 | Inpatient (IN) | payer OTHER, MEDICARE ==
[~2018-01-12] VITALS: Ht 157.5 cm; Wt 53.0 kg
[~2018-01-12 15:21] MED LIST changes: +BUDE3CAP6 PO; +VALA10004 PO
[2018-01-12] MEDS ORDERED: ONDANSETRON 2MG/ML, 2ML IVPush ONE (16:00)
[2018-01-12] MEDS ORDERED: SODIUM CHLORIDE 0.9% 1,000ML IVBOLUS ONE (16:00)
[2018-01-12 16:08] LABS: BASOPHILS # (AUTO) 0.04 x10^3/uL (0-0.1); BASOPHILS % (AUTO) 1 % (0-1); EOSINOPHILS # (AUTO) 0.07 x10^3/uL (0-0.4); EOSINOPHILS % (AUTO) 2 % (1-7); LYMPHOCYTES # (AUTO) 2.19 x10^3/uL (1-3.4); LYMPHOCYTES % (AUTO) 46 % (22-44); MD NO; MEAN CORPUSCULAR HEMOGLOBIN 32.9 pg (27.0-34.8); MEAN CORPUSCULAR VOLUME 96.7 fL (80-100); MEAN PLATELET VOLUME 8.8 fL (7.4-10.4); MONOCYTES % (AUTO) 6 % (2-9); NEUTROPHILS # (AUTO) 2.22 x10^3/uL (1.8-6.8); NEUTROPHILS % (AUTO) 46 % (42-75); PLATELET COUNT 271 x10^3/uL (130-400); RED BLOOD COUNT 3.88 x10^6/uL (3.82-5.3); RED CELL DISTRIBUTION WIDTH 13.1 % (9.6-15.2)
[2018-01-12 16:11] LABS: ALANINE AMINOTRANSFERASE 18 U/L (12-78); ANION GAP 7 mmol/L (5-15); CALCIUM 8.4 mg/dL (8.5-10.1); CHLORIDE 109 mmol/L (98-107); CREATININE 0.83 mg/dL (0.55-1.02)
[2018-01-12 16:13] LABS: ALKALINE PHOSPHATASE 71 U/L (45-117); BILIRUBIN,TOTAL 0.4 mg/dL (0.2-1.0); TOTAL PROTEIN 7.5 g/dL (6.4-8.2)
[2018-01-12] MEDS ORDERED: MORPHINE SULFATE 4 MG/ML, 1ML ONE ×2 (16:30→17:23)
[2018-01-12] MEDS ORDERED: ONDANSETRON ODT 4 MG ONE (16:30)
[2018-01-12] MEDS ORDERED: METOCLOPRAMIDE 5 MG/ML, 2ML IVPush ONE (16:30)
[2018-01-12] MEDS ORDERED: ONDANSETRON ODT 4 MG PO ONE (16:30)
[2018-01-12] MEDS: MORPHINE SULFATE 4 MG/ML, 1ML IVPush PRN ×2 (16:37→17:25)
[2018-01-12] MEDS ORDERED: DESV50TA PO (16:59)
[2018-01-12] MEDS ORDERED: METRONIDAZOLE PMX 500MG/100ML 100 ML IVPB ONE (18:00)
[2018-01-12] MEDS ORDERED: CIPROFLOXACIN/PMX 400MG/200ML 200 ML IVPB ONE (18:00)
[2018-01-12] MEDS ORDERED: HYDROmorphone 2 MG/ML, 1ML ONE ×2 (18:14→18:52)
[2018-01-12] MEDS ORDERED: CIPROFLOXACIN/PMX 400MG/200ML 0 ML ONE (18:15)
[2018-01-12] MEDS ORDERED: METRONIDAZOLE PMX 500MG/100ML 100 ML ONE (18:15)
[2018-01-12] MEDS: HYDROmorphone 2 MG/ML, 1ML IVPush PRN ×3 (18:17→21:58)
[2018-01-12 19:00] LABS: CLOSTRIDIUM DIFFICILE ANTIGEN NEGATIVE; CLOSTRIDIUM DIFFICILE TOXIN NEGATIVE (Negative)
[2018-01-12] MEDS ORDERED: TEMPLATE NON-FORMULARY MED. (Butalbital/Aspirin/Caffeine** (Fiorinal 50-325-40 Mg Capsule PO PRN (19:30)
[2018-01-12] MEDS ORDERED: ACETAMINOPHEN 325 MG TABLET PO PRN (19:30)
[2018-01-12] MEDS ORDERED: PROMETHAZINE 25 MG/ML, 1ML IM PRN (19:30)
[2018-01-12 20:00] VITALS: BP 121/72
[2018-01-12] MEDS: POTASSIUM CHLORIDE 40 MEQ in D5%-0.9% NACL 1,000 ML IV SCH (20:04)
[2018-01-12] MEDS: HEPARIN 5,000 UNITS/ML, 1ML SQ SCH (20:05)
[2018-01-12] MEDS: CIPROFLOXACIN/PMX 400MG/200ML 200 ML IV SCH (20:05)
[2018-01-12 20:24] LABS: MICROSCOPIC AUTO
[2018-01-12 20:26] LABS: CULTURE INDICATED? NO
[2018-01-12] MEDS: DIPHENOXYLATE/ATROPINE TABLET PO SCH (21:00)
[2018-01-12] MEDS: DICYCLOMINE 20 MG TABLET PO SCH (21:09)
[2018-01-12] MEDS: ONDANSETRON ODT 4 MG PO PRN (21:12)
[2018-01-12 21:15] VITALS: BP 121/72
[2018-01-13] MEDS: HYDROmorphone 2 MG/ML, 1ML IVPush PRN ×6 (01:18→20:27)
[2018-01-13] MEDS: ONDANSETRON ODT 4 MG PO PRN ×3 (01:19→13:28)
[2018-01-13] MEDS: METRONIDAZOLE PMX 500MG/100ML 100 ML IV SCH ×3 (01:52→17:09)
[2018-01-13 02:10] VITALS: BP 99/63
[2018-01-13] MEDS: HEPARIN 5,000 UNITS/ML, 1ML SQ SCH ×3 (03:58→20:27)
[2018-01-13] MEDS: POTASSIUM CHLORIDE 40 MEQ in D5%-0.9% NACL 1,000 ML IV SCH ×3 (05:29→22:31)
[2018-01-13 05:45] LABS: BASOPHILS # (AUTO) 0.05 x10^3/uL (0-0.1); BASOPHILS % (AUTO) 1 % (0-1); EOSINOPHILS # (AUTO) 0.07 x10^3/uL (0-0.4); EOSINOPHILS % (AUTO) 2 % (1-7); LYMPHOCYTES # (AUTO) 1.68 x10^3/uL (1-3.4); LYMPHOCYTES % (AUTO) 39 % (22-44); MD NO; MEAN CORPUSCULAR VOLUME 97.1 fL (80-100); MEAN PLATELET VOLUME 8.8 fL (7.4-10.4); MONOCYTES # (AUTO) 0.38 x10^3/uL (0.2-0.8); MONOCYTES % (AUTO) 9 % (2-9); NEUTROPHILS # (AUTO) 2.11 x10^3/uL (1.8-6.8); NEUTROPHILS % (AUTO) 49 % (42-75); PLATELET COUNT 210 x10^3/uL (130-400); RED BLOOD COUNT 3.17 x10^6/uL (3.82-5.3); RED CELL DISTRIBUTION WIDTH 13.5 % (9.6-15.2)
[2018-01-13 05:56] LABS: ANION GAP 8 mmol/L (5-15); CALCIUM 7.5 mg/dL (8.5-10.1); CHLORIDE 112 mmol/L (98-107); CREATININE 0.67 mg/dL (0.55-1.02)
[2018-01-13 06:52] VITALS: BP 103/54
[2018-01-13] MEDS: CIPROFLOXACIN/PMX 400MG/200ML 200 ML IV SCH ×2 (08:00→20:26)
[2018-01-13] MEDS: BUDESONIDE 3 MG CAP DR.ER PO SCH (08:41)
[2018-01-13] MEDS: DICYCLOMINE 20 MG TABLET PO SCH ×2 (08:41→20:26)
[2018-01-13] MEDS: DIPHENOXYLATE/ATROPINE TABLET PO SCH ×3 (08:41→20:26)
[2018-01-13 14:28] VITALS: BP 105/63
[2018-01-13 15:19] LABS: CRYPTOSPORIDIUM ANTIGEN Negative (Negative)
[2018-01-13 18:27] VITALS: BP 111/71
[2018-01-13] MEDS: ONDANSETRON 2MG/ML, 2ML IVPush PRN (20:27)
[2018-01-14 01:15] VITALS: BP 101/55
[2018-01-14] MEDS: HYDROmorphone 2 MG/ML, 1ML IVPush PRN ×7 (02:07→23:28)
[2018-01-14] MEDS: METRONIDAZOLE PMX 500MG/100ML 100 ML IV SCH ×3 (02:07→17:55)
[2018-01-14] MEDS: ONDANSETRON 2MG/ML, 2ML IVPush PRN ×2 (05:20→20:16)
[2018-01-14] MEDS: HEPARIN 5,000 UNITS/ML, 1ML SQ SCH ×3 (05:21→20:17)
[2018-01-14 05:43] LABS: ANION GAP 7 mmol/L (5-15); CALCIUM 7.6 mg/dL (8.5-10.1); CHLORIDE 113 mmol/L (98-107); CREATININE 0.69 mg/dL (0.55-1.02)
[2018-01-14 07:09] VITALS: BP 103/60
[2018-01-14] MEDS: CIPROFLOXACIN/PMX 400MG/200ML 200 ML IV SCH ×2 (08:03→20:16)
[2018-01-14] MEDS: BUDESONIDE 3 MG CAP DR.ER PO SCH (08:04)
[2018-01-14] MEDS: DICYCLOMINE 20 MG TABLET PO SCH ×2 (08:04→20:16)
[2018-01-14] MEDS: DIPHENOXYLATE/ATROPINE TABLET PO SCH ×3 (08:04→20:16)
[2018-01-14] MEDS: POTASSIUM CHLORIDE 40 MEQ in D5%-0.9% NACL 1,000 ML IV SCH ×2 (08:46→17:55)
[2018-01-14] MEDS: ONDANSETRON ODT 4 MG PO PRN (11:45)
[2018-01-14 12:15] VITALS: BP 119/60
[2018-01-14 19:15] VITALS: BP 98/61
[2018-01-15 02:10] VITALS: BP 99/50
[2018-01-15] MEDS: METRONIDAZOLE PMX 500MG/100ML 100 ML IV SCH (02:34)
[2018-01-15] MEDS: HYDROmorphone 2 MG/ML, 1ML IVPush PRN ×3 (02:35→10:24)
[2018-01-15] MEDS: POTASSIUM CHLORIDE 40 MEQ in D5%-0.9% NACL 1,000 ML IV SCH (03:40)
[2018-01-15] MEDS: HEPARIN 5,000 UNITS/ML, 1ML SQ SCH (05:05)
[2018-01-15 06:25] VITALS: BP 95/56
[2018-01-15] MEDS: ONDANSETRON ODT 4 MG PO PRN (07:56)
[2018-01-15] MEDS: BUDESONIDE 3 MG CAP DR.ER PO SCH (07:56)
[2018-01-15] MEDS: DICYCLOMINE 20 MG TABLET PO SCH (07:57)
[2018-01-15] MEDS: DIPHENOXYLATE/ATROPINE TABLET PO SCH (07:57)
[2018-01-15] MEDS ORDERED: COLESTIPOL 1 GM TABLET PO SCH (09:00)
[2018-01-15] MEDS ORDERED: COLE1TAB2 PO (11:51)
[2018-01-15 12:23] VITALS: BP 89/55
[2018-01-15] MEDS ORDERED: POTASSIUM CHLORIDE 40 MEQ in D5%-0.9% NACL 1,000 ML IV SCH (20:00)
== END 2018-01-15 14:10 | disposition home or self-care (01) | DRG 392 ==
LOC: ED 18:10 → 3NE 18:11 → ED 18:12 → 3NE 19:30
PROVIDERS: ADMIT Hospitalist; ATTEND Family Medicine
DX: K52.832 Lymphocytic colitis (principal); E86.0 Dehydration; F32.9 Major depressive disorder, single episode, unspecified; G43.909 Migraine, unspecified, not intractable, without status migrainosus; R00.0 Tachycardia, unspecified; F41.9 Anxiety disorder, unspecified; G89.29 Other chronic pain; Z80.0 Family history of malignant neoplasm of digestive organs; Z80.7 Family history of other malignant neoplasms of lymphoid, hematopoietic and related tissues; Z81.8 Family history of other mental and behavioral disorders; Z82.49 Family history of ischemic heart disease and other diseases of the circulatory system; Z90.710 Acquired absence of both cervix and uterus; Z92.3 Personal history of irradiation; Z90.89 Acquired absence of other organs; Z88.8 Allergy status to other drugs, medicaments and biological substances
CPT/HCPCS: 36415; 87046; 87427; 99285; J7042; 74177; 80048; 80053; 81001; 83631; 83690; 83735; 84100; 85025; 87324; 87328; 87329; 89055; 96374; 96375; J0744; J1170; J1644; J2405; J2550; J3480; Q0162; J7030

== ENCOUNTER 2018-10-10 15:58 | Inpatient (IN) | payer OTHER, MEDICARE ==
[~2018-10-10] VITALS: Ht 157.5 cm; Wt 56.1 kg
[~2018-10-10 15:58] MED LIST changes: +COLE1TAB2 PO; +DESV50TA PO; +HYDR-3653 PO; -HYDR-882 PO; -VANC125C2 PO; +VANC125C3 PO
[2018-10-10] MEDS ORDERED: PLEASE ENTER HEIGHT AND WEIGHT MC SCH (16:30)
[2018-10-10] MEDS ORDERED: SODIUM CHLORIDE 0.9% 1,000ML IVBOLUS ONE (16:30)
[2018-10-10 16:32] LABS: BASOPHILS # (AUTO) 0.04 x10^3/uL (0-0.1); BASOPHILS % (AUTO) 1 % (0-1); EOSINOPHILS # (AUTO) 0.05 x10^3/uL (0-0.4); EOSINOPHILS % (AUTO) 1 % (1-7); LYMPHOCYTES # (AUTO) 2.23 x10^3/uL (1-3.4); LYMPHOCYTES % (AUTO) 30 % (22-44); MD NO; MEAN CORPUSCULAR HEMOGLOBIN 33.5 pg (27.0-34.8); MEAN CORPUSCULAR HGB CONC 33.4 g/dL (32.4-35.8); MEAN CORPUSCULAR VOLUME 100.3 fL (80-100); MEAN PLATELET VOLUME 8.7 fL (7.4-10.4); MONOCYTES # (AUTO) 0.41 x10^3/uL (0.2-0.8); MONOCYTES % (AUTO) 6 % (2-9); NEUTROPHILS # (AUTO) 4.74 x10^3/uL (1.8-6.8); NEUTROPHILS % (AUTO) 63 % (42-75); PLATELET COUNT 234 x10^3/uL (130-400); RED BLOOD COUNT 3.96 x10^6/uL (3.82-5.3)
--- NOTE | 2018-10-10 16:40 | NUR ---
PT PRESENTS TO ED WITH C/O LYMPHOCYTIC COLITIS FLARE. HX OF SAME. STATES SEEN AT [facility] AND GIVEN COMPAZINE AND ATROPINE TO HELP WITH LOOSE STOOLS. STATES CONTINUED PAIN AND NO CHANGE IN THE AMOUNT OF LOOSE STOOLS. MILD DISTRESS WITH MODERATE AMOUNT OF DISTCOMFORT NOTED. BREATHING REGULAR AND UNLABORED. ERMD AT BEDSIDE. AWAITING ORDERS. WILL CONTINUE TO MONITOR.
[2018-10-10 16:43] LABS: ALANINE AMINOTRANSFERASE 26 U/L (12-78); ALBUMIN 4.4 g/dL (3.4-5.0); ANION GAP 9 mmol/L (5-15); CALCIUM 8.8 mg/dL (8.5-10.1); CHLORIDE 108 mmol/L (98-107); CREATININE 0.84 mg/dL (0.55-1.02)
[2018-10-10 16:47] LABS: ALKALINE PHOSPHATASE 80 U/L (45-117); BILIRUBIN,TOTAL 0.1 mg/dL (0.2-1.0); TOTAL PROTEIN 7.7 g/dL (6.4-8.2)
[2018-10-10] MEDS ORDERED: ONDANSETRON 2MG/ML, 2ML IVPush ONE (17:00)
[2018-10-10] MEDS ORDERED: DICYCLOMINE 10 MG/ML, 2ML IM ONE (17:00)
[2018-10-10] MEDS ORDERED: MORPHINE SULFATE 4 MG/ML, 1ML IVPush PRN (17:00)
--- NOTE | 2018-10-10 17:52 | NUR ---
PORT ACCESSED USING STERILE TECHNIQUE. PT ALSO STATES FALLING A FEW DAYS AGO DUE TO DIZZYNESS FROM BEING DEHYDRATED. STATES RIGHT HAND AND RIGHT KNEE PAIN.
[2018-10-10] MEDS ORDERED: DEXAMETHASONE 4 MG/ML, 1ML ONE (17:55)
[2018-10-10] MEDS ORDERED: ONDANSETRON 2MG/ML, 2ML ONE (17:55)
[2018-10-10] MEDS ORDERED: MORPHINE SULFATE 4 MG/ML, 1ML ONE (17:55)
[2018-10-10] MEDS ORDERED: DEXAMETHASONE 4 MG/ML, 1ML IVPush ONE (18:00)
[2018-10-10] MEDS ORDERED: DICYCLOMINE 10 MG/ML, 2ML ONE (18:01)
--- NOTE | 2018-10-10 18:05 | NUR ---
PT MEDICATED PER MAR. 5 RIGHTS VERIFIED PRIOR. IVF STARTED PER MAR.
--- NOTE | 2018-10-10 18:18 | NUR ---
TASK RN: UA SAMPLE GIVEN TO PT.
[2018-10-10] MEDS ORDERED: HYDROmorphone 2 MG/ML, 1ML ONE (18:51)
[2018-10-10] MEDS: HYDROmorphone 2 MG/ML, 1ML IVPush PRN ×2 (18:58→21:35)
--- NOTE | 2018-10-10 19:01 | NUR ---
PT MEDICATED PER JUL. RIGHTS VERIFIED PRIOR. 3 P'S ADDRESSED. PT UP TO RESTROOM WITH STEADY GAIT. URINE SAMPLE COLLECTED AND SENT TO LAB.
[2018-10-10 19:08] LABS: MICROSCOPIC AUTO
[2018-10-10 19:22] LABS: CULTURE INDICATED? NO
--- NOTE | 2018-10-10 19:30 | NUR ---
PT UP TO RESTROOM WITH STEADY GAIT. ERMD AT BEDSIDE TO RECHECK. PT TO BE ADMITTED.
[2018-10-10] MEDS ORDERED: HYDROmorphone 2 MG/ML, 1ML IVPush PRN (20:00)
--- NOTE | 2018-10-10 20:10 | NUR ---
REPORT TO TODD THAKKAR.
[2018-10-10] MEDS ORDERED: SODIUM CHLORIDE 0.9% 1,000 ML IV ONE (21:00)
[2018-10-10] MEDS: LORazepam 2 MG/ML, 1ML IVPush PRN (21:36)
[2018-10-10] MEDS: SODIUM CHLORIDE 0.9% 1,000 ML IV SCH (21:41)
[2018-10-11 00:03] VITALS: BP 100/63
[2018-10-11] MEDS: ONDANSETRON 2MG/ML, 2ML IVPush PRN ×4 (00:14→21:04)
[2018-10-11] MEDS: MORPHINE SULFATE 4 MG/ML, 1ML IVPush PRN ×6 (00:14→21:04)
[2018-10-11] MEDS: LORazepam 2 MG/ML, 1ML IVPush PRN ×3 (04:03→21:04)
[2018-10-11 04:35] LABS: BASOPHILS # (AUTO) 0.02 x10^3/uL (0-0.1); BASOPHILS % (AUTO) 0 % (0-1); EOSINOPHILS % (AUTO) 0 % (1-7); LYMPHOCYTES # (AUTO) 1.22 x10^3/uL (1-3.4); LYMPHOCYTES % (AUTO) 17 % (22-44); MD NO; MEAN CORPUSCULAR HEMOGLOBIN 34.1 pg (27.0-34.8); MEAN CORPUSCULAR HGB CONC 33.6 g/dL (32.4-35.8); MEAN CORPUSCULAR VOLUME 101.5 fL (80-100); MEAN PLATELET VOLUME 9.1 fL (7.4-10.4); MONOCYTES # (AUTO) 0.24 x10^3/uL (0.2-0.8); MONOCYTES % (AUTO) 3 % (2-9); NEUTROPHILS # (AUTO) 5.73 x10^3/uL (1.8-6.8); NEUTROPHILS % (AUTO) 80 % (42-75); PLATELET COUNT 171 x10^3/uL (130-400); RED BLOOD COUNT 3.15 x10^6/uL (3.82-5.3); RED CELL DISTRIBUTION WIDTH 13.1 % (9.6-15.2)
[2018-10-11 04:46] LABS: ANION GAP 6 mmol/L (5-15); CALCIUM 7.6 mg/dL (8.5-10.1); CHLORIDE 111 mmol/L (98-107); CREATININE 0.57 mg/dL (0.55-1.02)
[2018-10-11 07:05] VITALS: BP 106/69
[2018-10-11] MEDS: SODIUM CHLORIDE 0.9% 1,000 ML IV SCH ×2 (08:47→18:09)
[2018-10-11] MEDS: CALCIUM CARBONATE 500 MG TAB.CHEW PO SCH ×2 (10:08→21:03)
[2018-10-11] MEDS: POTASSIUM CHLORIDE 20 MEQ TAB.ER.PRT PO SCH ×2 (10:09→16:46)
[2018-10-11 14:18] VITALS: BP 101/64
[2018-10-11] MEDS ORDERED: BUTA-177 PO (14:24)
[2018-10-11 20:30] VITALS: BP 99/60
[2018-10-12] MEDS: MORPHINE SULFATE 4 MG/ML, 1ML IVPush PRN ×6 (01:40→23:25)
[2018-10-12] MEDS: ONDANSETRON 2MG/ML, 2ML IVPush PRN ×4 (01:40→23:25)
[2018-10-12 02:17] VITALS: BP 98/64
[2018-10-12] MEDS: SODIUM CHLORIDE 0.9% 1,000 ML IV SCH ×3 (02:37→21:28)
[2018-10-12] MEDS: LORazepam 2 MG/ML, 1ML IVPush PRN ×3 (06:01→20:20)
[2018-10-12 06:56] VITALS: BP 98/62
[2018-10-12] MEDS: CALCIUM CARBONATE 500 MG TAB.CHEW PO SCH ×2 (07:45→20:20)
[2018-10-12] MEDS ORDERED: POTASSIUM CHLORIDE 40 MEQ in SODIUM CHLORIDE 0.9% 500 ML IV ONE (08:30)
[2018-10-12 13:22] VITALS: BP 114/72
[2018-10-12] MEDS: DICYCLOMINE 20 MG TABLET PO PRN (13:27)
[2018-10-12 19:39] VITALS: BP 107/58
[2018-10-13 00:40] VITALS: BP 101/58
[2018-10-13] MEDS: MORPHINE SULFATE 4 MG/ML, 1ML IVPush PRN ×5 (03:53→21:43)
[2018-10-13] MEDS: DICYCLOMINE 20 MG TABLET PO PRN (03:53)
[2018-10-13] MEDS: SODIUM CHLORIDE 0.9% 1,000 ML IV SCH ×2 (06:03→15:37)
[2018-10-13 06:26] LABS: BASOPHILS # (AUTO) 0.04 x10^3/uL (0-0.1); BASOPHILS % (AUTO) 1 % (0-1); EOSINOPHILS # (AUTO) 0.26 x10^3/uL (0-0.4); EOSINOPHILS % (AUTO) 8 % (1-7); LYMPHOCYTES # (AUTO) 1.36 x10^3/uL (1-3.4); LYMPHOCYTES % (AUTO) 40 % (22-44); MD NO; MEAN CORPUSCULAR HEMOGLOBIN 31.6 pg (27.0-34.8); MEAN CORPUSCULAR HGB CONC 31.5 g/dL (32.4-35.8); MEAN CORPUSCULAR VOLUME 100.4 fL (80-100); MEAN PLATELET VOLUME 8.9 fL (7.4-10.4); MONOCYTES # (AUTO) 0.29 x10^3/uL (0.2-0.8); MONOCYTES % (AUTO) 9 % (2-9); NEUTROPHILS % (AUTO) 42 % (42-75); PLATELET COUNT 161 x10^3/uL (130-400); RED BLOOD COUNT 3.29 x10^6/uL (3.82-5.3); RED CELL DISTRIBUTION WIDTH 13.4 % (9.6-15.2)
[2018-10-13 06:31] LABS: ALBUMIN 3.1 g/dL (3.4-5.0); ANION GAP 4 mmol/L (5-15); CHLORIDE 111 mmol/L (98-107)
[2018-10-13 06:34] LABS: ALANINE AMINOTRANSFERASE 30 U/L (12-78); ALKALINE PHOSPHATASE 68 U/L (45-117); BILIRUBIN,TOTAL 0.2 mg/dL (0.2-1.0); CREATININE 0.58 mg/dL (0.55-1.02); TOTAL PROTEIN 5.5 g/dL (6.4-8.2)
[2018-10-13 07:54] VITALS: BP 99/66
[2018-10-13] MEDS: POTASSIUM CHLORIDE 20 MEQ TAB.ER.PRT PO SCH (08:29)
[2018-10-13] MEDS: CALCIUM CARBONATE 500 MG TAB.CHEW PO SCH ×2 (08:30→21:44)
[2018-10-13] MEDS: ONDANSETRON 2MG/ML, 2ML IVPush PRN ×2 (11:30→15:38)
[2018-10-13] MEDS ORDERED: ONDANSETRON ODT 8 MG PO PRN (11:30)
[2018-10-13] MEDS: LORazepam 2 MG/ML, 1ML IVPush PRN ×3 (12:20→21:43)
[2018-10-13 14:41] VITALS: BP 108/73
[2018-10-13 19:55] VITALS: BP 108/73
[2018-10-14] MEDS: MORPHINE SULFATE 4 MG/ML, 1ML IVPush PRN ×6 (01:42→21:47)
[2018-10-14 02:06] VITALS: BP 105/64
[2018-10-14] MEDS: SODIUM CHLORIDE 0.9% 1,000 ML IV SCH ×2 (05:26→21:47)
[2018-10-14] MEDS: LORazepam 2 MG/ML, 1ML IVPush PRN ×3 (05:26→23:04)
[2018-10-14] MEDS: POTASSIUM CHLORIDE 20 MEQ TAB.ER.PRT PO SCH (08:43)
[2018-10-14] MEDS: CALCIUM CARBONATE 500 MG TAB.CHEW PO SCH ×2 (08:43→20:20)
[2018-10-14] MEDS: ONDANSETRON 2MG/ML, 2ML IVPush PRN ×3 (08:44→17:39)
[2018-10-14 08:48] VITALS: BP 113/62
[2018-10-14 13:15] LABS: CHLORIDE 107 mmol/L (98-107)
[2018-10-14 13:28] LABS: ALANINE AMINOTRANSFERASE 36 U/L (12-78); ALBUMIN 3.4 g/dL (3.4-5.0); ALKALINE PHOSPHATASE 69 U/L (45-117); ANION GAP 6 mmol/L (5-15); BILIRUBIN,TOTAL 0.2 mg/dL (0.2-1.0); CALCIUM 8.4 mg/dL (8.5-10.1); CREATININE 0.71 mg/dL (0.55-1.02); TOTAL PROTEIN 6.2 g/dL (6.4-8.2)
[2018-10-14] MEDS ORDERED: OMNIPAQUE 350 MG/ML, 100ML BOTTLE ONE (14:43)
[2018-10-14 15:12] VITALS: BP 111/60
[2018-10-14 19:32] VITALS: BP 109/60
[2018-10-15 00:58] VITALS: BP 116/63
[2018-10-15] MEDS: ONDANSETRON 2MG/ML, 2ML IVPush PRN ×5 (05:32→20:15)
[2018-10-15] MEDS: MORPHINE SULFATE 4 MG/ML, 1ML IVPush PRN ×6 (05:32→23:09)
[2018-10-15 06:02] LABS: BASOPHILS # (AUTO) 0.04 x10^3/uL (0-0.1); BASOPHILS % (AUTO) 1 % (0-1); EOSINOPHILS # (AUTO) 0.14 x10^3/uL (0-0.4); EOSINOPHILS % (AUTO) 3 % (1-7); LYMPHOCYTES # (AUTO) 1.62 x10^3/uL (1-3.4); LYMPHOCYTES % (AUTO) 36 % (22-44); MD NO; MEAN CORPUSCULAR HEMOGLOBIN 32.7 pg (27.0-34.8); MEAN CORPUSCULAR HGB CONC 32.8 g/dL (32.4-35.8); MEAN CORPUSCULAR VOLUME 99.7 fL (80-100); MEAN PLATELET VOLUME 8.8 fL (7.4-10.4); MONOCYTES # (AUTO) 0.39 x10^3/uL (0.2-0.8); MONOCYTES % (AUTO) 9 % (2-9); NEUTROPHILS # (AUTO) 2.36 x10^3/uL (1.8-6.8); NEUTROPHILS % (AUTO) 52 % (42-75); PLATELET COUNT 196 x10^3/uL (130-400); RED BLOOD COUNT 3.59 x10^6/uL (3.82-5.3); RED CELL DISTRIBUTION WIDTH 13.1 % (9.6-15.2)
[2018-10-15 06:07] LABS: ALBUMIN 3.2 g/dL (3.4-5.0); ANION GAP 6 mmol/L (5-15); CALCIUM 8.7 mg/dL (8.5-10.1); CHLORIDE 108 mmol/L (98-107)
[2018-10-15 06:12] LABS: ALANINE AMINOTRANSFERASE 31 U/L (12-78); ALKALINE PHOSPHATASE 68 U/L (45-117); BILIRUBIN,TOTAL 0.2 mg/dL (0.2-1.0); CREATININE 0.69 mg/dL (0.55-1.02)
[2018-10-15] MEDS: LORazepam 2 MG/ML, 1ML IVPush PRN ×3 (06:39→21:25)
[2018-10-15 07:21] VITALS: BP 99/60
[2018-10-15 07:34] LABS: C-REACTIVE PROTEIN, QUANT 0.05 mg/dL (0.02-0.49)
[2018-10-15] MEDS: POTASSIUM CHLORIDE 20 MEQ TAB.ER.PRT PO SCH (08:26)
[2018-10-15] MEDS: CALCIUM CARBONATE 500 MG TAB.CHEW PO SCH ×2 (08:26→20:15)
[2018-10-15 09:21] LABS: HCT (SEDRATE) 35.8 % (34.6-47.8)
[2018-10-15] MEDS: SODIUM CHLORIDE 0.9% 1,000 ML IV SCH (11:12)
[2018-10-15 16:25] VITALS: BP 93/56
[2018-10-15 19:10] VITALS: BP 100/61
[2018-10-16 01:12] VITALS: BP 81/48
[2018-10-16] MEDS: SODIUM CHLORIDE 0.9% 1,000 ML IV SCH (01:12)
[2018-10-16 02:36] VITALS: BP 99/66
[2018-10-16] MEDS: MORPHINE SULFATE 4 MG/ML, 1ML IVPush PRN (07:53)
[2018-10-16] MEDS: POTASSIUM CHLORIDE 20 MEQ TAB.ER.PRT PO SCH (07:53)
[2018-10-16 08:00] VITALS: BP 94/48
[2018-10-16] MEDS ORDERED: POTA20TA6 PO (10:09)
[2018-10-16] MEDS ORDERED: PRED20TA PO (10:09)
[2018-10-16] MEDS: LORazepam 2 MG/ML, 1ML IVPush PRN (11:04)
[2018-10-16] MEDS: ONDANSETRON 2MG/ML, 2ML IVPush PRN (13:16)
== END 2018-10-16 13:49 | disposition home or self-care (01) | DRG 392 ==
LOC: ED 20:06 → EDIP 20:07 → 3NE 21:18
PROVIDERS: ADMIT Internal Medicine; ATTEND Internal Medicine
DX: K52.832 Lymphocytic colitis (principal); K31.84 Gastroparesis; E86.0 Dehydration; F32.9 Major depressive disorder, single episode, unspecified; G43.909 Migraine, unspecified, not intractable, without status migrainosus; R31.9 Hematuria, unspecified; R53.81 Other malaise; L59.8 Other specified disorders of the skin and subcutaneous tissue related to radiation; D53.9 Nutritional anemia, unspecified; E83.51 Hypocalcemia; K90.0 Celiac disease; E83.52 Hypercalcemia; E87.6 Hypokalemia; F41.1 Generalized anxiety disorder; J45.909 Unspecified asthma, uncomplicated; Z79.51 Long term (current) use of inhaled steroids; Z80.0 Family history of malignant neoplasm of digestive organs; Z80.7 Family history of other malignant neoplasms of lymphoid, hematopoietic and related tissues; Z83.71 Family history of colonic polyps; Z90.49 Acquired absence of other specified parts of digestive tract; Z90.711 Acquired absence of uterus with remaining cervical stump
CPT/HCPCS: 36415; 74018; 74174; 80048; 80053; 81001; 82150; 82784; 83516; 83690; 84703; 85025; 85651; 86140; 87046; 87427; 89055; 96372; 96374; 96375; 99285; G0378; J1100; J1170; J2405; J3480; Q9967; J0500; J2060; J2270; J7030; J7040; J7512

== ENCOUNTER 2018-11-10 17:13 | Inpatient (IN) | payer OTHER, MEDICARE ==
[~2018-11-10] VITALS: Ht 157.5 cm; Wt 57.2 kg
[~2018-11-10 17:13] MED LIST changes: +BUTA-177 PO; +POTA20TA6 PO
[2018-11-10] MEDS ORDERED: SODIUM CHLORIDE 0.9% 1,000ML IVBOLUS ONE (17:30)
[2018-11-10] MEDS ORDERED: SODIUM CHLORIDE FLUSH 10ML SYR IVF ONE (17:30)
[2018-11-10 17:33] LABS: BASOPHILS # (AUTO) 0.05 x10^3/uL (0-0.1); BASOPHILS % (AUTO) 1 % (0-1); EOSINOPHILS # (AUTO) 0.08 x10^3/uL (0-0.4); EOSINOPHILS % (AUTO) 1 % (1-7); LYMPHOCYTES # (AUTO) 2.31 x10^3/uL (1-3.4); LYMPHOCYTES % (AUTO) 41 % (22-44); MD NO; MEAN CORPUSCULAR HEMOGLOBIN 33.7 pg (27.0-34.8); MEAN CORPUSCULAR HGB CONC 33.8 g/dL (32.4-35.8); MEAN CORPUSCULAR VOLUME 99.8 fL (80-100); MEAN PLATELET VOLUME 8.9 fL (7.4-10.4); MONOCYTES # (AUTO) 0.41 x10^3/uL (0.2-0.8); MONOCYTES % (AUTO) 7 % (2-9); NEUTROPHILS # (AUTO) 2.76 x10^3/uL (1.8-6.8); NEUTROPHILS % (AUTO) 49 % (42-75); PLATELET COUNT 217 x10^3/uL (130-400); RED BLOOD COUNT 3.92 x10^6/uL (3.82-5.3); RED CELL DISTRIBUTION WIDTH 13.2 % (9.6-15.2)
[2018-11-10 17:46] LABS: ALANINE AMINOTRANSFERASE 24 U/L (12-78); ALBUMIN 4.3 g/dL (3.4-5.0); ANION GAP 7 mmol/L (5-15); CALCIUM 8.9 mg/dL (8.5-10.1); CHLORIDE 108 mmol/L (98-107)
[2018-11-10 17:52] LABS: ALKALINE PHOSPHATASE 79 U/L (45-117); BILIRUBIN,TOTAL 0.4 mg/dL (0.2-1.0); CREATININE 0.84 mg/dL (0.55-1.02); TOTAL PROTEIN 7.6 g/dL (6.4-8.2)
--- NOTE | 2018-11-10 17:52 | NUR ---
PT WITH C/O ABD CRAMPS/N/N/D X3 DAYS. PT STATES SHE HAS CHRONIC COLITIS BUT THIS DOESNT SEEM NORMAL, SHE STATES SHE HAD A RECENT TRIP TO [facility] SHE STATES SHE MAY HAVE EATEN SOMETHING BAD. DENIES SOB, CP, TRAUMA. ER MD AT BEDSIDE TO ANTHONY PT, ORDERS RECEIVED.
[2018-11-10] MEDS ORDERED: DIPHENHYDRAMINE 50 MG/ML, 1ML IVPush ONE (18:00)
[2018-11-10] MEDS ORDERED: ONDANSETRON 2MG/ML, 2ML IVPush ONE ×2 (18:00→20:00)
[2018-11-10] MEDS ORDERED: morphine SULFATE 10 MG/ML, 1ML IVPush ONE ×2 (18:00→20:00)
--- NOTE | 2018-11-10 18:09 | NUR ---
PTS PORT ACCESSED, BOLUS HUNG.
[2018-11-10] MEDS ORDERED: DIPHENHYDRAMINE 50 MG/ML, 1ML ONE (18:15)
[2018-11-10] MEDS ORDERED: ONDANSETRON 2MG/ML, 2ML ONE ×2 (18:15→20:03)
[2018-11-10] MEDS ORDERED: MORPHINE SULFATE 4 MG/ML, 1ML ONE ×2 (18:16→20:03)
--- NOTE | 2018-11-10 18:52 | NUR ---
REPORT FROM ANTONIA BROOKS. pT RESTING. PT GIVEN BEDSIDE COMMODE.
--- NOTE | 2018-11-10 20:09 | NUR ---
PT REMEDICATED FOR PAIN. PT TO CT
[2018-11-10] MEDS ORDERED: OMNIPAQUE 350 MG/ML, 100ML BOTTLE ONE (20:30)
[2018-11-10] MEDS ORDERED: MORPHINE SULFATE 4 MG/ML, 1ML IVPush PRN (21:00)
[2018-11-10] MEDS ORDERED: methylPREDNISolone SOD SUCC 125 MG/2 ML IVPush ONE (21:00)
[2018-11-10] MEDS ORDERED: methylPREDNISolone SOD SUCC 125 MG/2 ML ONE (21:13)
[2018-11-10] MEDS ORDERED: BUDE3CAP6 PO (21:21)
[2018-11-10] MEDS ORDERED: VALA500T4 PO (21:22)
[2018-11-10 21:55] VITALS: BP 98/66
[2018-11-10] MEDS ORDERED: DIPHENHYDRAMINE 25 MG CAPSULE PO PRN (22:00)
[2018-11-10] MEDS ORDERED: LABETALOL 5MG/ML, 20ML IVPush PRN (22:00)
[2018-11-10] MEDS ORDERED: PROMETHAZINE 25 MG/ML, 1ML IM PRN (22:00)
[2018-11-10] MEDS ORDERED: BUTALB/APAP/CAFFEINE 50MG/325MG/40MG PO PRN (22:00)
[2018-11-10] MEDS ORDERED: ACETAMINOPHEN 325 MG TABLET PO PRN (22:00)
[2018-11-10] MEDS ORDERED: ONDANSETRON ODT 4 MG PO PRN (22:00)
[2018-11-10] MEDS: FAMOTIDINE 20 MG TABLET PO SCH (22:52)
[2018-11-10] MEDS: DICYCLOMINE 20 MG TABLET PO SCH (22:52)
[2018-11-10] MEDS: NS + 20MEQ KCL 1,000 ML IV SCH (22:53)
[2018-11-10] MEDS: ENOXAPARIN 40 MG/0.4 ML SQ SCH (22:53)
[2018-11-10] MEDS: morphine SULFATE 10 MG/ML, 1ML IVPush PRN (23:06)
[2018-11-11 01:36] VITALS: BP 97/65
[2018-11-11 04:22] LABS: AMPHETAMINE SCREEN, URINE Negative (Negative); BARBITURATE SCREEN, URINE Positive (Negative); BENZODIAZEPINE SCREEN, URINE Negative (Negative); CANNABINOID SCREEN, URINE Negative (Negative); COCAINE SCREEN, URINE Negative (Negative); METHADONE SCREEN, URINE Negative (Negative); OPIATE SCREEN, URINE Positive (Negative)
[2018-11-11] MEDS: ONDANSETRON 2MG/ML, 2ML IVPush PRN ×2 (04:38→13:33)
[2018-11-11] MEDS: morphine SULFATE 10 MG/ML, 1ML IVPush PRN ×2 (04:39→10:06)
[2018-11-11 04:42] LABS: MICROSCOPIC AUTO
[2018-11-11 04:57] LABS: CULTURE INDICATED? NO
[2018-11-11 05:07] LABS: ANION GAP 4 mmol/L (5-15); CALCIUM 7.8 mg/dL (8.5-10.1); CHLORIDE 112 mmol/L (98-107); CREATININE 0.77 mg/dL (0.55-1.02)
[2018-11-11] MEDS: NS + 20MEQ KCL 1,000 ML IV SCH ×3 (06:37→21:24)
[2018-11-11 07:00] VITALS: BP 89/56
[2018-11-11] MEDS ORDERED: POTASSIUM CHLORIDE 20 MEQ TAB.ER.PRT PO SCH (08:00)
[2018-11-11] MEDS: DICYCLOMINE 20 MG TABLET PO SCH ×2 (10:05→21:24)
[2018-11-11] MEDS: TEMPLATE NON-FORMULARY MED. (Desvenlafaxine Succinate** (Pristiq Er**) 50 MG) PO SCH (10:05)
[2018-11-11] MEDS: FAMOTIDINE 20 MG TABLET PO SCH ×2 (10:05→21:24)
[2018-11-11] MEDS: BUDESONIDE 3 MG CAP DR.ER PO SCH ×3 (10:05→21:24)
[2018-11-11 11:12] LABS: CLOSTRIDIUM DIFFICILE ANTIGEN POSITIVE; CLOSTRIDIUM DIFFICILE TOXIN NEGATIVE (Negative); CRYPTOSPORIDIUM ANTIGEN Negative (Negative)
[2018-11-11 12:58] VITALS: BP 93/60
[2018-11-11 13:34] VITALS: BP 105/60
[2018-11-11] MEDS ORDERED: morphine SULFATE 10 MG/ML, 1ML IVPush ONE (18:00)
[2018-11-11 18:43] VITALS: BP 106/71
[2018-11-11] MEDS: ENOXAPARIN 40 MG/0.4 ML SQ SCH (21:24)
[2018-11-12 00:30] VITALS: BP 90/57
[2018-11-12] MEDS: KETOROLAC 30 MG/1 ML IV PRN ×3 (03:35→17:32)
[2018-11-12] MEDS: ONDANSETRON 2MG/ML, 2ML IVPush PRN ×2 (03:35→10:25)
[2018-11-12 07:05] LABS: ALBUMIN 2.8 g/dL (3.4-5.0); ANION GAP 5 mmol/L (5-15); CALCIUM 7.3 mg/dL (8.5-10.1); CHLORIDE 117 mmol/L (98-107)
[2018-11-12 07:08] LABS: ALANINE AMINOTRANSFERASE 26 U/L (12-78); ALKALINE PHOSPHATASE 51 U/L (45-117); BILIRUBIN,TOTAL 0.3 mg/dL (0.2-1.0); CREATININE 0.67 mg/dL (0.55-1.02); TOTAL PROTEIN 5.2 g/dL (6.4-8.2)
[2018-11-12 07:16] LABS: BASOPHILS # (AUTO) 0.03 x10^3/uL (0-0.1); BASOPHILS % (AUTO) 1 % (0-1); EOSINOPHILS # (AUTO) 0.04 x10^3/uL (0-0.4); EOSINOPHILS % (AUTO) 1 % (1-7); LYMPHOCYTES # (AUTO) 1.79 x10^3/uL (1-3.4); LYMPHOCYTES % (AUTO) 52 % (22-44); MD SCAN; MEAN CORPUSCULAR HEMOGLOBIN 32.8 pg (27.0-34.8); MEAN CORPUSCULAR HGB CONC 33.1 g/dL (32.4-35.8); MEAN CORPUSCULAR VOLUME 99.3 fL (80-100); MEAN PLATELET VOLUME 9.1 fL (7.4-10.4); MONOCYTES # (AUTO) 0.18 x10^3/uL (0.2-0.8); MONOCYTES % (AUTO) 5 % (2-9); NEUTROPHILS % (AUTO) 41 % (42-75); PLATELET COUNT 155 x10^3/uL (130-400); RED BLOOD COUNT 3.03 x10^6/uL (3.82-5.3); RED CELL DISTRIBUTION WIDTH 13.3 % (9.6-15.2)
[2018-11-12 07:20] VITALS: BP 112/67
[2018-11-12] MEDS: TEMPLATE NON-FORMULARY MED. (Desvenlafaxine Succinate** (Pristiq Er**) 50 MG) PO SCH (09:00)
[2018-11-12 09:35] LABS: % IRON SATURATION 64 % (20-55); IRON LEVEL 145 mcg/dL (50-170); TOTAL IRON BINDING CAPACITY 227 mcg/dL (250-450)
[2018-11-12] MEDS: BUDESONIDE 3 MG CAP DR.ER PO SCH ×3 (10:27→20:05)
[2018-11-12] MEDS: DICYCLOMINE 20 MG TABLET PO SCH ×2 (10:27→20:05)
[2018-11-12] MEDS: FAMOTIDINE 20 MG TABLET PO SCH ×2 (10:27→20:05)
[2018-11-12 13:29] LABS: OCCULT BLOOD NEGATIVE (NEGATIVE)
[2018-11-12] MEDS: VANCOMYCIN 50 MG/ML ORAL SUSP PO SCH ×2 (14:02→18:37)
[2018-11-12 14:45] VITALS: BP 108/63
[2018-11-12 20:07] VITALS: BP 111/66
[2018-11-12] MEDS ORDERED: MORPHINE SULFATE 4 MG/ML, 1ML IVPush ONE (21:30)
[2018-11-13] MEDS: VANCOMYCIN 50 MG/ML ORAL SUSP PO SCH ×4 (00:02→18:13)
[2018-11-13] MEDS: ENOXAPARIN 40 MG/0.4 ML SQ SCH ×2 (00:02→21:09)
[2018-11-13 00:15] VITALS: BP 92/60
[2018-11-13] MEDS: KETOROLAC 30 MG/1 ML IV PRN ×3 (04:11→23:13)
[2018-11-13] MEDS: ONDANSETRON 2MG/ML, 2ML IVPush PRN ×3 (04:11→23:13)
[2018-11-13 05:29] LABS: BASOPHILS # (AUTO) 0.04 x10^3/uL (0-0.1); BASOPHILS % (AUTO) 1 % (0-1); EOSINOPHILS # (AUTO) 0.08 x10^3/uL (0-0.4); EOSINOPHILS % (AUTO) 2 % (1-7); LYMPHOCYTES # (AUTO) 1.87 x10^3/uL (1-3.4); LYMPHOCYTES % (AUTO) 44 % (22-44); MD NO; MEAN CORPUSCULAR HEMOGLOBIN 33.2 pg (27.0-34.8); MEAN CORPUSCULAR HGB CONC 33.5 g/dL (32.4-35.8); MEAN CORPUSCULAR VOLUME 99.2 fL (80-100); MEAN PLATELET VOLUME 9.1 fL (7.4-10.4); MONOCYTES # (AUTO) 0.27 x10^3/uL (0.2-0.8); MONOCYTES % (AUTO) 6 % (2-9); NEUTROPHILS # (AUTO) 1.96 x10^3/uL (1.8-6.8); NEUTROPHILS % (AUTO) 46 % (42-75); PLATELET COUNT 149 x10^3/uL (130-400); RED BLOOD COUNT 3.15 x10^6/uL (3.82-5.3); RED CELL DISTRIBUTION WIDTH 12.9 % (9.6-15.2)
[2018-11-13 05:43] LABS: CHLORIDE 109 mmol/L (98-107)
[2018-11-13 05:53] LABS: ALANINE AMINOTRANSFERASE 27 U/L (12-78); ALBUMIN 3.1 g/dL (3.4-5.0); ALKALINE PHOSPHATASE 57 U/L (45-117); ANION GAP 4 mmol/L (5-15); BILIRUBIN,TOTAL 0.3 mg/dL (0.2-1.0); CALCIUM 7.8 mg/dL (8.5-10.1); CREATININE 0.68 mg/dL (0.55-1.02); TOTAL PROTEIN 5.5 g/dL (6.4-8.2)
[2018-11-13] MEDS ORDERED: POTASSIUM CHLORIDE 20 MEQ TAB.ER.PRT PO ONE (07:30)
[2018-11-13 08:20] VITALS: BP 98/63
[2018-11-13] MEDS: FAMOTIDINE 20 MG TABLET PO SCH ×2 (08:27→21:09)
[2018-11-13] MEDS: BUDESONIDE 3 MG CAP DR.ER PO SCH ×3 (08:27→21:09)
[2018-11-13] MEDS: DICYCLOMINE 20 MG TABLET PO SCH ×2 (08:27→21:08)
[2018-11-13] MEDS: TEMPLATE NON-FORMULARY MED. (Desvenlafaxine Succinate** (Pristiq Er**) 50 MG) PO SCH (08:28)
[2018-11-13 13:54] VITALS: BP 98/65
[2018-11-13 19:18] VITALS: BP 104/71
[2018-11-14] MEDS ORDERED: morphine SULFATE 10 MG/ML, 1ML IVPush ONE
[2018-11-14] MEDS: VANCOMYCIN 50 MG/ML ORAL SUSP PO SCH ×5 (00:27→23:57)
[2018-11-14 02:46] VITALS: BP 97/61
[2018-11-14 07:03] VITALS: BP 107/68
[2018-11-14] MEDS: FAMOTIDINE 20 MG TABLET PO SCH ×2 (09:00→21:05)
[2018-11-14] MEDS: BUDESONIDE 3 MG CAP DR.ER PO SCH ×3 (09:00→21:05)
[2018-11-14] MEDS: DICYCLOMINE 20 MG TABLET PO SCH ×2 (09:00→21:05)
[2018-11-14] MEDS: TEMPLATE NON-FORMULARY MED. (Desvenlafaxine Succinate** (Pristiq Er**) 50 MG) PO SCH (09:00)
[2018-11-14] MEDS: AZITHROMYCIN 500 MG TABLET PO SCH (09:00)
[2018-11-14 16:03] VITALS: BP 108/72
[2018-11-14] MEDS: ONDANSETRON 2MG/ML, 2ML IVPush PRN (18:08)
[2018-11-14] MEDS: KETOROLAC 30 MG/1 ML IV PRN (18:08)
[2018-11-14 18:42] VITALS: BP 108/73
[2018-11-14] MEDS: ENOXAPARIN 40 MG/0.4 ML SQ SCH (21:05)
[2018-11-14 22:09] VITALS: BP 113/76
[2018-11-15 00:55] VITALS: BP 94/62
[2018-11-15] MEDS: VANCOMYCIN 50 MG/ML ORAL SUSP PO SCH ×2 (06:03→11:12)
[2018-11-15] MEDS ORDERED: VANC125C11 PO (06:05)
[2018-11-15 06:06] LABS: ALANINE AMINOTRANSFERASE 67 U/L (12-78); ALBUMIN 3.4 g/dL (3.4-5.0); ANION GAP 5 mmol/L (5-15); CALCIUM 8.1 mg/dL (8.5-10.1); CHLORIDE 109 mmol/L (98-107)
[2018-11-15 06:09] LABS: ALKALINE PHOSPHATASE 65 U/L (45-117); BILIRUBIN,TOTAL 0.6 mg/dL (0.2-1.0); CREATININE 0.75 mg/dL (0.55-1.02); TOTAL PROTEIN 6.2 g/dL (6.4-8.2)
[2018-11-15 06:23] LABS: BASOPHILS # (AUTO) 0.04 x10^3/uL (0-0.1); BASOPHILS % (AUTO) 1 % (0-1); EOSINOPHILS # (AUTO) 0.09 x10^3/uL (0-0.4); EOSINOPHILS % (AUTO) 2 % (1-7); LYMPHOCYTES # (AUTO) 1.36 x10^3/uL (1-3.4); LYMPHOCYTES % (AUTO) 31 % (22-44); MD NO; MEAN CORPUSCULAR HEMOGLOBIN 33.1 pg (27.0-34.8); MEAN CORPUSCULAR HGB CONC 33.5 g/dL (32.4-35.8); MEAN PLATELET VOLUME 9.2 fL (7.4-10.4); MONOCYTES # (AUTO) 0.33 x10^3/uL (0.2-0.8); MONOCYTES % (AUTO) 8 % (2-9); NEUTROPHILS # (AUTO) 2.53 x10^3/uL (1.8-6.8); NEUTROPHILS % (AUTO) 58 % (42-75); PLATELET COUNT 170 x10^3/uL (130-400); RED CELL DISTRIBUTION WIDTH 12.8 % (9.6-15.2)
[2018-11-15 06:59] VITALS: BP 97/66
[2018-11-15] MEDS: TEMPLATE NON-FORMULARY MED. (Desvenlafaxine Succinate** (Pristiq Er**) 50 MG) PO SCH (09:00)
[2018-11-15] MEDS: BUDESONIDE 3 MG CAP DR.ER PO SCH (09:56)
[2018-11-15] MEDS: AZITHROMYCIN 500 MG TABLET PO SCH (09:56)
[2018-11-15] MEDS: DICYCLOMINE 20 MG TABLET PO SCH (09:56)
[2018-11-15] MEDS: FAMOTIDINE 20 MG TABLET PO SCH (09:56)
== END 2018-11-15 12:48 | disposition home or self-care (01) | DRG 373 ==
LOC: ED 18:26 → EDIP 20:43 → 3NE 21:45
PROVIDERS: ADMIT Family Medicine; ATTEND Family Medicine
DX: A04.72 Enterocolitis due to Clostridium difficile, not specified as recurrent (principal); E87.6 Hypokalemia; E86.0 Dehydration; F32.9 Major depressive disorder, single episode, unspecified; G43.909 Migraine, unspecified, not intractable, without status migrainosus; G89.29 Other chronic pain; K52.9 Noninfective gastroenteritis and colitis, unspecified; Z80.0 Family history of malignant neoplasm of digestive organs; Z80.7 Family history of other malignant neoplasms of lymphoid, hematopoietic and related tissues; Z81.1 Family history of alcohol abuse and dependence; Z90.49 Acquired absence of other specified parts of digestive tract; Z90.710 Acquired absence of both cervix and uterus; Z88.8 Allergy status to other drugs, medicaments and biological substances; Z91.018 Allergy to other foods; Z79.899 Other long term (current) drug therapy
CPT/HCPCS: 36415; 87046; 87427; 96361; 99285; J3370; 74177; 80048; 80053; 80307; 81001; 82272; 83540; 83550; 83690; 84703; 85025; 87324; 87328; 87329; 87493; 89055; 93005; 96374; 96375; 96376; G0378; J1650; J1885; J2405; J3480; Q9967; J1200; J2270; J2930; J7030; Q0163